=== PATIENT | male | born 1935 | race Caucasian/White ===

== ENCOUNTER → 2016-07-17 07:52 | Day surgery (SDC) | payer MEDICARE, OTHER ==
[~2016-07-17 07:52] MED LIST: Acetaminophen TAB* 325 MG PO PRN; Buffered Lidocaine 1% SYR 3ML* 3 ML/SYR SYRINGE INTRADERM ONE; Buffered Lidocaine 1% SYR 3ML* 3 ML/SYR SYRINGE ONE; Cyclopentolate 1% OPTH.SOL* 2 ML BTL ONE; Flurbiprofen 0.03% OPTH.SOL* 2.5 ML BTL ONE; Lidocaine 1% MPF* 2 ML VIAL ONE; Midazolam* 1 MG/ML 2 ML VIAL (2 MG) ONE; Neomycin/Polymy/Dex OPHTH.OIN* 3.5 GM ONE; Phenylephrine 2.5% OPTH.SOL* 2 ML BTL ONE; Tetracaine 0.5% OPTH.SOL 4 ML* 1 DROP BTL ONE; Tropicamide 1% OPTH.SOL* BTL ONE; fentaNYL* 50 MCG/ML 2 ML VIAL (100 MCG VIAL) ONE
[2016-07-17 09:43] VITALS: BP 108/69
--- NOTE | 2016-07-17 20:58 | OP ---
DATE OF OPERATION: 07/17/16 - [facility] DATE OF : 39 SURGEON: Dr. Myles. LICENSED VETERINARY TECHNICIAN: None. ANESTHESIOLOGIST: Bal Duran MD ANESTHESIA: Topical with intravenous sedation. PRE-OP DIAGNOSIS: Cataract, right eye with astigmatism. POST-OP DIAGNOSIS: Cataract, right eye with astigmatism. OPERATIVE PROCEDURE: Phacoemulsification and cataract extraction with posterior chamber toric intraocular lens implant, right eye. COMPLICATIONS: None. BLOOD LOSS: None. DESCRIPTION OF PROCEDURE: The patient was seen preoperatively in the holding area. He was placed in the upright position and a fabby was made at the 6 o' clock position near limbus on the conjunctiva of his right eye. The patient was then brought to the operating room and given a small amount of intravenous sedation as well as tetracaine to the right eye. He was prepped and draped in the usual sterile fashion for ophthalmic surgery. Attention was directed to the right eye where a speculum was placed. A paracentesis was created at the 11 o'clock position and 0.1 cc of 1% preservative-free lidocaine was injected into the anterior chamber followed by DisCoVisc. The eye was digitally stabilized while a 2.75 mm keratome was used to create a triplanar clear corneal incision at the 9 o'clock position. A continuous curvilinear capsulorrhexis was created with a cystotome and Utrata forceps. BSS on a cannula was used to hydrodissect the lens from the capsule. Phacoemulsification was performed in a mikgos-smm-ebeyfqi technique to create 4 fragments, which were removed. Residual cortical material was removed with irrigation and aspiration and the capsule was well polished. The capsular bag was inflated with Healon towards the anterior chamber. A Vila marker was used to fabby the 24 degree axis at the limbus. An [id number] 22 diopter lens was folded and inserted into the capsular bag. It was generally dialed to the appropriate actual alignment with a Sinskey hook. Through the paracentesis, the Sinskey hook remained to stabilize the lens while irrigation and aspiration was performed, removed all viscoelastic from the eye. The Sinskey hook was removed. BSS on a cannula was used to hydrate the corneal stroma and seal the wound. At the end of the case, the pupil was round. The lens was centered, stable, and axially aligned. The eye pressure appeared normal and the wound was water tight. The speculum was removed and topical Maxitrol ointment was placed on the surface of the eye. The eye was closed, patched, and shielded and the patient was sent to the recovery room in stable condition with postop instructions and followup appointment given. [id number] #: [id number] MTDD
== END | disposition home or self-care (01) ==
LOC: OREAST 07:52
PROVIDERS: ATTEND Ophthalmology
DX: H25.11 Age-related nuclear cataract, right eye (principal); H52.201 Unspecified astigmatism, right eye
CPT/HCPCS: A9270-GY; J2250; J3010; V2787

== ENCOUNTER → 2016-07-24 07:57 | Day surgery (SDC) | payer MEDICARE, OTHER ==
[2016-07-24 10:41] VITALS: BP 129/72
--- NOTE | 2016-07-24 13:01 | OP ---
DATE OF OPERATION: 07/24/16 - [facility] DATE OF : 39 SURGEON: Darryn Myles MD DRILLING CONTRACTOR: None. ANESTHESIOLOGIST: Nishant Mccauley MD ANESTHESIA: Topical intravenous sedation. PRE-OP DIAGNOSIS: Cataract with astigmatism, left eye. POST-OP DIAGNOSIS: Cataract with astigmatism, left eye. OPERATIVE PROCEDURE: Phacoemulsification cataract extraction with posterior chamber intraocular toric lens, left eye. COMPLICATIONS: None. ESTIMATED BLOOD LOSS: None. DESCRIPTION OF PROCEDURE: The patient was seen preoperatively in the holding area, where he was placed in an upright position and a fabby was made with the 6 o'clock axis of the limbus of the left eye. The patient was brought to the operating room soon thereafter and prepped and draped in the usual sterile fashion for ophthalmic surgery. A drop of tetracaine was placed in the left eye. The patient was given a small amount of intravenous sedation. The left eye was prepped and draped in the usual sterile fashion for ophthalmic surgery and attention was directed to the left eye, where a speculum was placed. A paracentesis was created at the 5 o'clock position and 0.1 cc of 1% preservative -free lidocaine was injected into the anterior chamber followed by DisCoVisc. The eye was digitally stabilized while a 2.75 mm keratome was used to create a triplanar clear corneal incisions at 3 o'clock position. A continuous curvilinear capsulorrhexis was created with a cystitome and Utrata forceps. BSS on a cannula was used to hydrodissect the lens in the capsule. Phacoemulsification was performed in a dlpczm-bni-syqrrek technique to created 4 fragments, which were removed. Residual cortical material was removed with irrigation and aspiration. Healon was used to inflate the capsular bag. A Vila marker and marking pen were used to fabby the 149 degree axis. An SN6AT3 22.5 diopter lens was folded and inserted into the capsular bag. It was dialed for the appropriate axis using a Sinskey hook and held there for the paracentesis. Irrigation aspiration was performed to remove viscoelastic from the eye. The Sinskey hook was removed. BSS on a cannula was used to hydrate the corneal stoma and seal the wound. At the end of the case, the pupil was round. The lens was centered, stable, and axially aligned. The eye pressure appeared normal and the wound is watertight. The speculum was removed and topical Maxitrol ointment was placed on the surface of the eye. The eye was closed, patched, and shielded and the patient was sent to recovery room in stable condition with postoperative instructions and followup appointment given. [id number] #: [id number] MTDD
== END | disposition home or self-care (01) ==
LOC: OREAST 07:57
PROVIDERS: ATTEND Ophthalmology
DX: H25.12 Age-related nuclear cataract, left eye (principal); Q21.1 Atrial septal defect
CPT/HCPCS: A9270-GY; J2250; J3010; V2787

== ENCOUNTER 2017-07-19 08:44 | Inpatient (IN) | payer MEDICARE, OTHER ==
[2017-07-19] MEDS ORDERED: Ticagrelor* 90 MG TAB PO ONE (08:59)
[2017-07-19] MEDS ORDERED: Heparin for STEMI(*) 5,000 UNITS/ML 1 ML VIAL IV ONE (08:59)
[2017-07-19] MEDS ORDERED: Aspirin Low Dose CHEW TAB* 81 MG ONE (09:00)
[2017-07-19] MEDS ORDERED: Heparin 2 UNITS/ML IVPREMIX* 3,000 ML IV ONE (09:16)
[2017-07-19] MEDS ORDERED: fentaNYL* 50 MCG/ML 2 ML VIAL (100 MCG VIAL) ONE (09:16)
[2017-07-19] MEDS ORDERED: Midazolam* 1 MG/ML 10 ML VIAL (10 MG) ONE (09:17)
[2017-07-19] MEDS ORDERED: Iohexol 350 (CONTRAST) 200 ML MDV IV ONE ×2 (09:17→09:35)
[2017-07-19] MEDS ORDERED: Lidocaine 1% INJ* 10 MG/ML 30 ML SDV ONE (09:17)
[2017-07-19] MEDS ORDERED: Heparin(*) 1000 UNIT/ML 10 ML VIAL CATH LAB IV ONE (09:19)
[2017-07-19] MEDS ORDERED: Bivalirudin(*) 250 MG VIAL ONE (09:19)
[2017-07-19 09:44] LABS: EGFR Non-African American 82.2 (>60)
[2017-07-19 09:52] LABS: Hematocrit 53 % (42-52); Hemoglobin 17.4 g/dl (14.0-18.0); Mean Corpuscular HGB Conc 33 g/dl (31-36); Mean Corpuscular Hemoglobin 29 pg (27-31); Mean Corpuscular Volume 88 fL (80-94); Red Blood Count 5.94 10^6/ul (4.0-5.4); Red Cell Distribution Width 13 % (10.5-15)
[2017-07-19 10:01] LABS: INR 0.87 (0.77-1.02)
[2017-07-19 10:20] LABS: ABS Basophils 0 10^3/ul (0-0.2); ABS Eosinophils 0.1 10^3/ul (0-0.6); ABS Lymphocytes 1.6 10^3/ul (1.0-4.8); ABS Monocytes 0.5 10^3/ul (0-0.8); ABS Neutrophils 8.2 10^3/ul (1.5-7.7); ABS Nucleated RBC 0 10^3/ul; Eosinophil % 0.8 % (0-6); Lymphocyte % 14.9 % (25-47); Mean Platelet Volume 9 um3 (7.4-10.4); Nucleated Red Blood Cells % 0.3; Platelet Count 197 10^3/ul (150-450); White Blood Count 10.4 10^3/ul (3.5-10.8)
[2017-07-19] MEDS ORDERED: Nitroglycerin TAB 0.4 MG* 0.4 MG TAB SL PRN (10:23)
[2017-07-19] MEDS ORDERED: Docusate CAP* 100 MG PO PRN (10:27)
[2017-07-19] MEDS ORDERED: Acetaminophen TAB* 325 MG PO PRN (10:27)
[2017-07-19] MEDS ORDERED: Ondansetron INJ* 2 MG/ML VIAL IV PRN (10:27)
[2017-07-19] MEDS ORDERED: fentaNYL* 50 MCG/ML 2 ML VIAL (100 MCG VIAL) IV PRN (10:27)
[2017-07-19] MEDS ORDERED: Zolpidem TAB* 5 MG PO PRN (10:27)
[2017-07-19] MEDS ORDERED: oxyCODONE/Acetamin 5/325 MG* TAB PO PRN (10:27)
[2017-07-19] MEDS ORDERED: NS 0.9% 1000 ML* 1,000 ML IV SCH (10:30)
[2017-07-19] MEDS ORDERED: Atorvastatin* 80 MG TAB PO ONE (10:35)
[2017-07-19] MEDS ORDERED: Metoprolol Tartrate TAB* 25 MG PO SCH (11:00)
--- NOTE | 2017-07-19 17:47 | ED ---
Zuhair Ennis Nilda, scribed for Jose Fry MD on 07/19/17 at 1200 . HPI Chest Pain - HPI Summary HPI Summary: This patient is an 82 year old M [facility] accompanied by with a chief complaint of constant CP (dull pressure) since 033. The patient rates the pain 1/10 and 2/10 max in severity. Symptoms aggravated and alleviated by nothing. Patient denies edema, diaphoresis, N/V, CP radiation to jaw and arm, and SOB. Pt states no PMHx CAD. Medications include baby aspirin and Vit D pill. PMHx cardiac foramen ovale. - History of Current Complaint Chief Complaint: EDChestPainROMI Time Seen by Provider: 07/19/17 08:59 Hx Obtained From: Patient Onset/Duration: Started Hours Ago, Still Present Timing: Constant Current Severity: Mild Pain Intensity: 1 Pain Scale Used: 0-10 Numeric Chest Pain Location: Diffuse Chest Pain Radiates: No Character: Dull/Aching, Pressure/Squeezing Aggravating Factor(s): Nothing Alleviating Factor(s): Nothing Associated Signs and Symptoms: Positive: Other: - denies edema, diaphoresis, N/V , CP radiation to jaw and arm, and SOB - Allergy/Home Medications Allergies/Adverse Reactions: Allergies Allergy/AdvReac Type Severity Reaction Status Date / Time No Known Allergies Allergy Verified 07/24/16 08:16 Home Medications: Home Medications Aspirin EC Low Dose* [Ecotrin EC Low Dose 81 MG*] 81 mg PO DAILY 07/19/17 [ History Confirmed 07/19/17] Cholecalciferol TAB* [Vitamin D TAB*] 1,000 unit PO DAILY 07/19/17 [History Confirmed 07/19/17] Miconazole Nitrate (Topical) [Miconazole] 2 % TOPICAL BID PRN 07/19/17 [History Confirmed 07/19/17] Urea [Ureacin-20] 20 % TOPICAL DAILY PRN 07/19/17 [History Confirmed 07/19/17] PMH/Surg Hx/FS Hx/Imm Hx Cardiovascular History: Reports: Other Cardiovascular Problems/Disorders - foramen ovale Denies: Hx Coronary Artery Disease, Hx Hypertension Sensory History: Reports: Hx Cataracts - BILATERAL, Hx Contacts or Glasses - GLASSES Denies: Hx Hearing Aid Opthamlomology History: Reports: Hx Cataracts - BILATERAL, Hx Contacts or Glasses - GLASSES - Surgical History Surgery Procedure, Year, and Place: TONSILLECTOMY A CHILD. RIGHT LARGE TOE SURGERY. ROOT CANAL ABOUT TEN YEARS AGO, OFFICE Hx Anesthesia Reactions: No Infectious Disease History: No Infectious Disease History: Denies: Traveled Outside the [place] in Last 30 Days - Family History Known Family History: Positive: Cardiac Disease - Social History Alcohol Use: Occasionally Substance Use Type: Reports: None Smoking Status (MU): Never Smoked Tobacco Review of Systems Negative: Skin Diaphoresis Positive: Chest Pain - negative radiation to jaw and arm Negative: Shortness Of Breath Negative: Vomiting, Nausea Negative: Edema All Other Systems Reviewed And Are Negative: Yes Physical Exam - Summary Physical Exam Summary: VITAL SIGNS: Reviewed. GENERAL: Patient is a well-developed and nourished male who is lying comfortable in the stretcher. Patient is not in any acute respiratory distress. HEAD AND FACE: No signs of trauma. No ecchymosis, hematomas or skull depressions. No sinus tenderness. EYES: PERRLA, EOMI x 2, No injected conjunctiva, no nystagmus. EARS: Hearing grossly intact. Ear canals and tympanic membranes are within normal limits. MOUTH: Oropharynx within normal limits. NECK: Supple, trachea is midline, no adenopathy, no JVD, no carotid bruit, no c- spine tenderness, neck with full ROM. CHEST: Symmetric, no tenderness at palpation LUNGS: Clear to auscultation bilaterally. No wheezing or crackles. CVS: Regular rate and rhythm, S1 and S2 present, no murmurs or gallops appreciated. ABDOMEN: Soft, non-tender. No signs of distention. No rebound no guarding, and no masses palpated. Bowel sounds are normal. EXTREMITIES: FROM in all major joints, no edema, no cyanosis or clubbing. NEURO: Alert and oriented x 3. No acute neurological deficits. Speech is normal and follows commands. SKIN: Dry and warm Triage Information Reviewed: Yes Vital Signs On Initial Exam: Initial Vitals Temp Pulse Resp BP Pulse Ox 98.4 F 75 18 149/87 100 07/19/17 08:45 07/19/17 08:45 07/19/17 08:45 07/19/17 08:45 07/19/17 08:45 Vital Signs Reviewed: Yes Diagnostics - Vital Signs Vital Signs Temp Pulse Resp BP Pulse Ox 07/19/17 09:16 82 20 100 07/19/17 09:14 175/84 07/19/17 08:45 98.4 F 75 18 149/87 100 - Laboratory Lab Results: Lab Results 07/19/17 07/19/17 07/19/17 Range/Units 09:13 09:13 09:13 WBC (3.5-10.8) 10^3/ul RBC (4.0-5.4) 10^6/ul Hgb (14.0-18.0) g/dl Hct (42-52) % MCV (80-94) fL MCH (27-31) pg MCHC (31-36) g/dl RDW (10.5-15) % Plt Count (150-450) 10^3/ul MPV (7.4-10.4) um3 Neut % (Auto) (38-83) % Lymph % (Auto) (25-47) % [place] % (Auto) (1-9) % Eos % (Auto) (0-6) % Baso % (Auto) (0-2) % Absolute Neuts (auto) (1.5-7.7) 10^3/ul Absolute Lymphs (auto) (1.0-4.8) 10^3/ul Absolute Monos (auto) (0-0.8) 10^3/ul Absolute Eos (auto) (0-0.6) 10^3/ul Absolute Basos (auto) (0-0.2) 10^3/ul Absolute Nucleated RBC 10^3/ul Nucleated RBC % INR (Anticoag Therapy) 0.87 (0.77-1.02) APTT 20.8 L (26.0-36.3) seconds Sodium 137 (133-145) mmol/L Potassium 3.8 (3.5-5.0) mmol/L Chloride 100 L (101-111) mmol/L Carbon Dioxide 28 (22-32) mmol/L Anion Gap 9 (2-11) mmol/L BUN 15 (6-24) mg/dL Creatinine 0.89 (0.67-1.17) mg/dL Est GFR ( Amer) 105.8 (>60) Est GFR (Non-Af Amer) 82.2 (>60) BUN/Creatinine Ratio 16.9 (8-20) Glucose 104 H (70-100) mg/dL Lactic Acid (0.5-2.0) mmol/L Calcium 9.7 (8.6-10.3) mg/dL Total Bilirubin 0.70 (0.2-1.0) mg/dL AST 25 (13-39) U/L ALT 22 (7-52) U/L Alkaline Phosphatase 59 (34-104) U/L Total Creatine Kinase 77 (10-223) U/L CK-MB (CK-2) 7.4 H (0.6-6.3) ng/mL Troponin I 0.09 H* (<0.04) ng/mL B-Natriuretic Peptide 26 ( - 100) pg/mL Total Protein 7.5 (6.4-8.9) g/dL Albumin 4.7 (3.2-5.2) g/dL Globulin 2.8 (2-4) g/dL Albumin/Globulin Ratio 1.7 (1-3) LDL Cholesterol Direct 156 mg/dL 07/19/17 07/19/17 Range/Units 09:13 09:13 WBC 10.4 (3.5-10.8) 10^3/ul RBC 5.94 H (4.0-5.4) 10^6/ul Hgb 17.4 (14.0-18.0) g/dl Hct 53 H (42-52) % MCV 88 (80-94) fL MCH 29 (27-31) pg MCHC 33 (31-36) g/dl RDW 13 (10.5-15) % Plt Count 197 (150-450) 10^3/ul MPV 9 (7.4-10.4) um3 Neut % (Auto) 79.1 (38-83) % Lymph % (Auto) 14.9 L (25-47) % [place] % (Auto) 4.7 (1-9) % Eos % (Auto) 0.8 (0-6) % Baso % (Auto) 0.5 (0-2) % Absolute Neuts (auto) 8.2 H (1.5-7.7) 10^3/ul Absolute Lymphs (auto) 1.6 (1.0-4.8) 10^3/ul Absolute Monos (auto) 0.5 (0-0.8) 10^3/ul Absolute Eos (auto) 0.1 (0-0.6) 10^3/ul Absolute Basos (auto) 0 (0-0.2) 10^3/ul Absolute Nucleated RBC 0 10^3/ul Nucleated RBC % 0.3 INR (Anticoag Therapy) (0.77-1.02) APTT (26.0-36.3) seconds Sodium (133-145) mmol/L Potassium (3.5-5.0) mmol/L Chloride (101-111) mmol/L Carbon Dioxide (22-32) mmol/L Anion Gap (2-11) mmol/L BUN (6-24) mg/dL Creatinine (0.67-1.17) mg/dL Est GFR ( Amer) (>60) Est GFR (Non-Af Amer) (>60) BUN/Creatinine Ratio (8-20) Glucose (70-100) mg/dL Lactic Acid 1.9 (0.5-2.0) mmol/L Calcium (8.6-10.3) mg/dL Total Bilirubin (0.2-1.0) mg/dL AST (13-39) U/L ALT (7-52) U/L Alkaline Phosphatase (34-104) U/L Total Creatine Kinase (10-223) U/L CK-MB (CK-2) (0.6-6.3) ng/mL Troponin I (<0.04) ng/mL B-Natriuretic Peptide ( - 100) pg/mL Total Protein (6.4-8.9) g/dL Albumin (3.2-5.2) g/dL Globulin (2-4) g/dL Albumin/Globulin Ratio (1-3) LDL Cholesterol Direct mg/dL Result Diagrams: 07/19/17 09:13 07/19/17 09:13 Lab Statement: Any lab studies that have been ordered have been reviewed, and results considered in the medical decision making process. - EKG 0847 Cardiac Rate: NL EKG Rhythm: Sinus Rhythm - 72 bpm EKG Interpretation: ST depression in V2-V6 and lead 2, consistent with posterior wall TN 0902 Cardiac Rate: NL EKG Rhythm: Sinus Rhythm - 83 bpm EKG Interpretation: ST depression in V2-V6 and lead 2, consistent with posterior wall TN. Chest Pain Course/Dx - Course Assessment/Plan: This patient is an 82 year old M presenting to [facility] accompanied by with a chief complaint of constant CP (dull pressure) since 329. The patient rates the pain 1/10 and 2/10 max in severity. Symptoms aggravated and alleviated by nothing. Patient denies edema, diaphoresis, N/V, CP radiation to jaw and arm, and SOB. Pt states no PMHx CAD. Medications include baby aspirin and Vit D pill. PMHx cardiac foramen ovale. Trop 0.09. An EKG reveals NSR, 72 bpm, ST depression in V2-V6 and lead 2, consistent with posterior wall TN. A second EKG revealed NSR, 83 bpm, ST depression in V2-V6 and lead 2, consistent with posterior wall TN. Labs w/o a significant abnormality except for troponin 0.09. [0900] Dr. Mike (interventionalist) agrees to see pt in ED. [0905] Dr. Mike (interventionalist) agrees to admit patient to the cath lab radiological technologist. The pt is hemodynamically stable, alert and oriented x3. Pt will be admitted with Dx acute TN.. - Chest Pain Differential Diagnosis/HQI/PQRI: Acute TN, ACS, Angina, CHF, Chest Wall, GI Disease, Lower Respiratory Infection - Diagnoses Provider Diagnoses: Acute TN - Provider Notifications Discussed Care Of Patient With: Zaid Mike - interventionalist Time Discussed With Above Provider: 09:00 Instructed by Provider To: Will See In ED - Critical Care Time Critical Care Time: 75-104 min Discharge - Discharge Plan Condition: Stable Disposition: ADMITTED TO [facility] documentation as recorded by the Zuhair lovell Nilda accurately reflects the service I personally performed and the decisions made by Ang lazcano Walter, MD.
[2017-07-19] MEDS ORDERED: Metoprolol Tartrate TAB* 25 MG PO ONE ×2 (18:30→22:30)
--- NOTE | 2017-07-19 19:03 | ECHO ---
Patient: ODALYS YOUSIF [facility] Rec#: [id number] : 1935 Date: 07/19/2017 Age: 82y Height: 177.8 cm / 70.0 in Weight: 81.7 kg / 180.1 lbs Sex: M BSA: 2 Room#: ICU 1 Admit Date#: 07/19/2017 Type: Inpatient Referring: Zaid Mike MD Reading: Zaid Mike MD Pin Inserter: Rosie Nolan RN RDCS CC: John Paul Siegel MD Transthoracic Echocardiogram Indication: S/P PCI for posterior FL BP: 149/87 HR: 63 Rhythm: NSR with PVCs Findings History: TIA, PFO Technical Comments: The study quality is fair. Completed at 1815. Left Ventricle: The left ventricular chamber size is normal. Septal wall hypertrophy is observed. There is a focal wall motion abnormality present.There is moderste to severe hypokinesis of the low posterolateral wall extending to the apical area There is mild to moderately decreased left ventricular systolic function. Visually estimated LVEF is approximately 45 % There is an E to A reversal in the mitral valve flow pattern suggestive of diastolic dysfunction. Left Atrium: The left atrial chamber size is normal. Right Ventricle: The right ventricular chamber size and systolic function are within normal limits. Right Atrium: The right atrial cavity size is normal. The bubble study is negative. Delayed appearance of saline contrast bubbles is noted in the left atrium indicating intrapulmonary shunting. Aortic Valve: The aortic valve leaflets are mildly thickened. There is no evidence of aortic regurgitation. There is no evidence of aortic stenosis. Mitral Valve: The mitral valve leaflets are mildly thickened. There is a trace of mitral regurgitation. There is no evidence of mitral stenosis. Tricuspid Valve: The tricuspid valve leaflets are normal. There is trace tricuspid regurgitation. Unable to estimate the right ventricular systolic pressure. Pulmonic Valve: The pulmonic valve structure is not well visualized. There is a trace pulmonic regurgitation. There is no pulmonic stenosis. Pericardium: There is no significant pericardial effusion. A pericardial fat pad is visualized. Aorta: There is mild dilatation of the ascending aorta. There is no dilatation of the aortic arch. There is no dilation of the aortic root. Pulmonary Artery: The main pulmonary artery is not well visualized. Venous: The inferior vena cava is not visualized. Contrast: Normal saline was used as contrast for the bubble study. Images 1 and 2. Conclusions There is a focal wall motion abnormality present.There is moderste to severe hypokinesis of the low posterolateral wall extending to the apical area There is mild to moderately decreased left ventricular systolic function. Visually estimated LVEF is approximately 45 % The bubble study is negative. Delayed appearance of saline contrast bubbles is noted in the left atrium indicating intrapulmonary shunting. There is a trace of mitral regurgitation. There is trace tricuspid regurgitation. There is mild dilatation of the ascending aorta. Compared to report of MYRNA from 05/14/06 the focal wall motion abnormality is new, there appears to be less mitral and tricuspid regurgitation (was mild to moderate and mild respectively). The current bubble study does not show right to left shunting at the atrial level, although the quality of the images are not as good as a transesophageal study. Suggest a MYRNA at some point if a more definitive answer is needed. Measurements Name Value Normal Range RVDdMajor (2D) 3.1 cm (2.2 - 4.4) RAd ISD 4CH 4.8 cm (3.4 - 4.9) RA (A4C)W 4 cm (2.9 - 4.6) IVSd (2D) 1.1 cm (0.6 - 1) LVPWd (2D) 1 cm (0.6 - 1) LVIDd (2D) 4.6 cm (3.6 - 5.4) LVIDs (2D) 3.6 cm - LV FS (2D) 22 % (25 - 45) Aortic Annulus 2 cm (1.4 - 2.6) Ao root diameter (2D) 3.1 cm (2.1 - 3.5) Ascending Ao 3.6 cm (2.1 - 3.4) Aortic arch 2.8 cm (1.8 - 3.4) LA dimension (AP) 2D 3.7 cm (2.3 - 3.8) LAd ISD 4CH 4.7 cm (2.9 - 5.3) LA ISD 4CH W 3.9 cm (2.5 - 4.5) Name Value Normal Range LA ESV SP 4CH (A/L) 41 ml - LA ESV SP 2CH (A/L) 43 ml - LA ESV BP (A/L) 43 ml - LA ESV BP (A/L) index 21.5 ml/m2 - LA ESV SP 4CH (MOD) 38 ml - LA ESV SP 2CH (MOD) 42 ml - Name Value Normal Range MV E-wave Vmax 0.6 m/sec - MV deceleration time 263 msec - MV A-wave Vmax 0.8 m/sec - MV E:A ratio 0.75 ratio - LV septal e' Vmax 0.07 m/sec - LV lateral e' Vmax 0.07 m/sec - LV E:e' septal ratio 8.6 ratio - LV E:e' lateral ratio 8.6 ratio - Name Value Normal Range AV Vmax 1 m/sec - AV VTI 18.6 cm - AV peak gradient 4 mmHg - AV mean gradient 2.4 mmHg - LVOT Vmax 0.93 m/sec - LVOT VTI 18.4 cm - LVOT peak gradient 3.5 mmHg - LVOT mean gradient 1.9 mmHg - PEDRO Vmax 0.54 m/sec - Name Value Normal Range PV Vmax 0.77 m/sec -
[2017-07-19] MEDS: Ticagrelor* 90 MG TAB PO SCH (20:45)
[2017-07-19] MEDS: Atorvastatin* 80 MG TAB PO SCH (20:45)
--- NOTE | 2017-07-19 20:47 | HP ---
CC: Dr. John Paul Siegel * ADMISSION HISTORY AND PHYSICAL: DATE OF ADMISSION: 07/19/17 CHIEF COMPLAINT: The patient presents 6 hours into an acute posterior wall myocardial infarction. HISTORY OF PRESENT ILLNESS: The patient is a pleasant 82-year-old gentleman with no prior known cardiac history. Specifically, he denies any prior history of coronary artery disease. His cardiac history dates back to a reported echocardiogram done back in 2005 for a workup of TIA when he was noted to have a patent foramen ovale with spontaneous shunting of contrast by agitated injection. He had normal LV function at that time. More recently, he had a repeat echocardiogram done for evaluation for question of an asymptomatic heart murmur and to recheck on the question of the patent foramen ovale and mitral regurgitation that was performed on 08/24/10. His LV function at that time was normal with an EF of 60% to 65%. He had lipomatous hypertrophy of the atrial septum. The right ventricle and right atrium were normal in size. The left atrium was mildly dilated. There was mild mitral regurgitation with mild tricuspid regurgitation. The aortic root, the ascending aorta, and aortic arch were normal. 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 There was no significant radiation to the throat, jaw, or the arms. He had no nauseousness or vomiting. He stated that in the emergency room, it had decreased significantly from when it was at home, but at no point with its severe in nature. EKG was performed and it showed profound ST segment depression anteriorly suggesting posterior wall infarction with poor R-wave already greater than S and V2 as well as V3. There was mild ST segment depression seen in aVF slightly more in lead 2. A discussion was made with him regarding the presence of the EKG still demonstrating persistent ST segment changes which would be consistent with posterior elevation. The risks and benefits of cardiac catheterization were explained. He understood them and wished to proceed. In the emergency room, he was given heparin intravenously 4000 units in addition to getting Brilinta 180 mg as well as aspirin 325 mg. Of note, the blood tests were pending at the time of proceeding directly to the cardiovascular laboratory. CARDIAC RISK FACTORS: The patient denied any known history of hypertension or hyperlipidemia. He has the history as mentioned of patent foramen ovale, on aspirin therapy. He has impaired fasting glycemia according to his family doctor. He does not smoke and he denies any family history of early coronary artery disease. PAST MEDICAL HISTORY: The patent foramen ovale in addition to impaired fasting glycemia and intermittent constipation. PAST SURGICAL HISTORY: Included cataracts bilaterally. He also had tonsillectomy as a child, right toe surgery and root canal about 10 years ago. REVIEW OF SYSTEMS: Pertinent to proceeding emergently to the cardiovascular laboratory. He denied any history of stroke, but did mention a question of this TIA back in 2005, for which they found the patent foramen ovale. He denied any history of renal insufficiency, any history of hematochezia, hematemesis, or hematuria or any contrast allergy. PHYSICAL EXAMINATION GENERAL: When I see him in the emergency room reveals pleasant gentleman with mild chest discomfort, still present. VITAL SIGNS: Revealed blood pressure of 149/87, pulse was 75 and regular, respirations were 18, O2 saturation 100% on room air, afebrile. HEENT: Conjunctivae were pink. Sclerae clear. NECK: Supple. There was no obvious increased JVP. Carotid had good upstroke and volume without bruits. LUNGS: Revealed no accessory muscle usage. There is good excursion. Lungs are relatively clear to A and P. HEART: Revealed no visible heaves, no palpable heaves or thrills. Normal S1, S2. I did not appreciate a significant systolic or diastolic murmur. I cannot rule out a faint systolic murmur at the left lower sternal border. ABDOMEN: Soft, nontender. EXTREMITIES: Without edema. NEUROLOGIC: The patient is alert and oriented with normal mentation. MUSCULOSKELETAL: The patient moves all extremities appropriately. PSYCHOLOGICAL: The patient with normal affect. DIAGNOSTIC STUDIES/LAB DATA: EKG was as mentioned above showing sinus rhythm with a heart rate of 72. IL, QRS and QT interval all normal. There was significant ST segment depression in V2 through V5 and mildly in V6 as well as mildly in aVF and more prominent lead 2. 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 OVERALL ASSESSMENT: Trell now presents in the throes of an acute posterior wall STEMI , already 6 hours at least into it. At this point in time, the risks and benefits were explained and with persistent posterior elevation noted fairly diffusely, consideration toward revascularization will be made. He understands the risks and benefits and wishes to proceed and has been medicated appropriately for the procedure. Further therapy will be adjusted pending results of the catheterization. [id number]/[facility] #: [id number] [facility]
[2017-07-20 05:10] LABS: ABS Basophils 0 10^3/ul (0-0.2); ABS Eosinophils 0.1 10^3/ul (0-0.6); ABS Lymphocytes 1.3 10^3/ul (1.0-4.8); ABS Monocytes 0.9 10^3/ul (0-0.8); ABS Neutrophils 6.6 10^3/ul (1.5-7.7); ABS Nucleated RBC 0 10^3/ul; Eosinophil % 1.2 % (0-6); Hematocrit 44 % (42-52); Hemoglobin 14.8 g/dl (14.0-18.0); Lymphocyte % 14.5 % (25-47); Mean Corpuscular HGB Conc 34 g/dl (31-36); Mean Corpuscular Hemoglobin 30 pg (27-31); Mean Corpuscular Volume 88 fL (80-94); Mean Platelet Volume 9 um3 (7.4-10.4); Nucleated Red Blood Cells % 0; Platelet Count 172 10^3/ul (150-450); Red Blood Count 4.98 10^6/ul (4.0-5.4); Red Cell Distribution Width 13 % (10.5-15); White Blood Count 8.8 10^3/ul (3.5-10.8)
[2017-07-20 05:25] LABS: EGFR Non-African American 90.4 (>60)
[2017-07-20] MEDS: Aspirin Low Dose CHEW TAB* 81 MG PO SCH (09:38)
[2017-07-20] MEDS: Ticagrelor* 90 MG TAB PO SCH ×2 (09:38→20:20)
[2017-07-20] MEDS: Metoprolol Tartrate TAB* 25 MG PO SCH ×2 (09:38→20:19)
[2017-07-20] MEDS: Atorvastatin* 80 MG TAB PO SCH (20:20)
[2017-07-21 06:45] LABS: EGFR Non-African American 91.7 (>60)
[2017-07-21] MEDS: Aspirin Low Dose CHEW TAB* 81 MG PO SCH (08:53)
[2017-07-21] MEDS: Ticagrelor* 90 MG TAB PO SCH ×2 (08:54→21:28)
[2017-07-21] MEDS: Metoprolol Tartrate TAB* 25 MG PO SCH ×2 (08:54→21:27)
--- NOTE | 2017-07-21 09:32 | CATH ---
CC: Dr. John Paul Siegel * CARDIAC CATHETERIZATION AND INTERVENTIONAL REPORT: DATE OF PROCEDURE: 07/19/17 INDICATION FOR THE PROCEDURE: Patient presents with a posterior wall myocardial infarction over 6 hours into it by history. PROCEDURES: Coronary arteriography, left heart catheterization, left ventriculography, primary stenting of the mid to distal circumflex artery utilizing a 2.25 x 20 mm long Synergy drug-eluting stent dilated to high pressures to obtain 2.4 mm diameter, a Mynx closure device placement for hemostasis. The patient was interviewed and examined in the emergency room where the risks and benefits were explained. He understood them. He was brought to the cardiovascular laboratory where formal time-out was performed. The patient was prepped and draped in a sterile fashion. Right groin area was anesthetized with 1% lidocaine. Right femoral artery was cannulated and a 6.5-British Merit Prelude sheath was placed. Coronary arteriography was performed utilizing a 5- British 4 Yarely left coronary catheter for the left coronary artery and a 5- British right coronary artery. For the right coronary artery, a 5-British pigtail catheter was advanced to the ascending aorta, where central aortic pressure was recorded. The catheter was then passed across the aortic into the left ventricle where the left ventricular pressure was recorded. Left ventriculography was performed utilizing a total of 24 cc of Omnipaque dye at a rate of 12 cc per second. The catheter was then pulled back across the aortic valve to recheck gradient. Following this, decision was made to intervene into the circumflex artery. Guiding views were performed utilizing VL 3.5, 6-British guide catheter. An 0.014 [place] Star wire was advanced down the circumflex artery and primary stenting was performed utilizing the 2.25 x 28 mm long balloon expanded to high pressures to obtain 2.4 mm. Following this, the artery was assessed both with the wire in place and the wire removed. Of note, the patient's ECT was checked and found to be subtherapeutic and as such an Angiomax bolus and Angiomax drip was started. The patient had already received aspirin 325 mg and Brilinta 180 mg in the emergency room as well as heparin 4000 unit bolus. Following this, an ejection was made into the right femoral sheath to assess the ability to utilize a closure device for hemostasis. It was found to be acceptable for this and as such a size 6/7- British Mynx closure device was deployed with good hemostasis. The total contrast used was 140 cc of Omnipaque dye. The radiation exposure included 10.1 minutes of fluoro time. The air kerma radiation was 840 milligray , the DAPA radiation was 4842 microgray/m2. RESULTS: HEMODYNAMIC DATA: Left heart catheterization - central aortic pressure recorded at 135/61 with mean of 92, left ventricular pressure 134 over left ventricular end diastolic pressure of 19. LEFT VENTRICULOGRAPHY: Performed in the HUNT projection revealed symmetrical contraction of left ventricle with mild distal inferior apical hypokinesis. Overall EF appeared to be approximately 50% in this HUNT projection. No significant mitral regurgitation was seen. CORONARY ARTERIOGRAPHY: A. Right coronary artery - a dominant vessel supplying the PDA and three posterior left ventricular branches. There was a mild 15% to 20% narrowing seen the proximal portion of the right coronary artery. The mid to distal area had a narrowing of 40% to 45% prior to the posterior descending artery. The ostium of the posterior descending artery appeared to have a 75% blockage in its worst view. The mid portion of the posterior descending artery had a 55% to 60% narrowing in a somewhat small caliber vessel that appeared to be less than 2 mm. B. Left coronary artery. 1. Left main - widely patent with no significant narrowing seen. 2. Left anterior descending artery - the proximal portion of the left anterior descending artery was noted to have an area of stenosis that appeared to be 60% to 65% in its worst view. After the first diagonal branch, there was an area of narrowing, which appeared to be 50% to 60%. The mid to distal portion of the LAD had a 75% to 80% lesion noted. LAUREN 3 flow was seen throughout the course of the left anterior descending artery. 3. Circumflex artery - a nondominant vessel supplying a very thin first obtuse marginal branch. This was a vessel caliber of well less than 1.7 mm. There was a ostial and proximal narrowing of 50% to 55%. Of note, this is not a vessel that could be intervened on. The continuation of the circumflex supplied a moderate size obtuse marginal branch, which trifurcated toward the apical and distal inferior wall. There was a hazy 65% to 70% lesion followed by a critical 95% lesion in the mid to distal portion before the trifurcation area. INTERVENTION INTO MID TO DISTAL CIRCUMFLEX ARTERY SECOND OBTUSE MARGINAL BRANCH : Successful reduction of critical 95% mid area more proximal 65% to 70% hazy area with primary stenting utilizing a 2.25 x 28 mm long Synergy drug-eluting stent dilated to high pressure to obtain 2.4 mm with LAUREN 3 flow, no dissection seen, and 10% residual narrowing noted. Of note, the caliber of this stent appeared to be larger than the [place] vessel itself. No dissection was seen. OVERALL ASSESSMENT: Significant multi-vessel disease as described above involving the PDA ostial proximal area as well as the proximal LAD, mid LAD, and distal LAD with the culprit lesion being the mid portion of the moderate to large trifurcating second obtuse marginal branch noted to have LAUREN 2 flow preintervention. Successful intervention with primary stenting as described above. Aggressive risk factor management with high dose statin therapy, dual antiplatelet therapy , beta- chuckie therapy will be presumed. Staged intervention into the LAD pending evaluation with probable fractional flow reserve analysis will be performed. [id number]/[facility] #: [id number] MTDD
[2017-07-21] MEDS: Atorvastatin* 80 MG TAB PO SCH (21:28)
--- NOTE | 2017-07-22 01:35 | DS ---
CC: John Paul Siegel MD * PREDISCHARGE SUMMARY: DATE OF ADMISSION: 07/19/17 DATE OF DISCHARGE: Will be 07/22/17. FINAL DIAGNOSIS: Acute posterior wall myocardial infarction with 6-1/2-hour presentation. SECONDARY DIAGNOSES: 1. Hyperlipidemia. 2. Coronary artery disease. 3. History of patent foramen ovale. 4. Impaired fasting glycemia. 5. Intermittent constipation. HISTORY OF PRESENT ILLNESS: The patient is a pleasant 82-year-old gentleman who presented to [facility] on 07/19/17 in the throes of an acute posture with myocardial infarction. Unfortunately, by the time of presentation , he was already some 6 to 6-1/2 hours into his inferior wall myocardial infarction. Please refer to the H and P for complete details. He was taken emergently to the cardiovascular laboratory and found to have multivessel disease with the culprit lesion being a subtotally occluded large second obtuse marginal branch traversing to the inferior apical lateral wall. He underwent successful primary stenting of this vessel utilizing a 2.25 x 28 mm long Synergy drug-eluting stent dilated to as high as 2.4 to 2.5 mm. Of note , at the time of the catheterization, he was noted to have disease within the left anterior descending artery with an area of stenosis proximally of approximately 60% to 65% followed by a 50% to 60% area just after the first diagonal branch. The distal area had a 75% to 80% lesion seen. The right coronary artery was a dominant vessel with mild disease proximally, a mid 40% to 45% blockage was noted. The ostium and the posterior descending artery appeared in its worst view to have as much as a 70% to 75% blockage. The mid portion of the PDA itself had a 55% to 60% narrowing noted. HOSPITAL COURSE: During the hospital course, his troponin peaked at 17.48. His EKG developed T-wave inversions in 1, 2, aVL, and subtly in lead aVF, and T- wave inversions were noted in V4 through 6. Of note, he had early R-wave progression in his precordial leads that interestingly was already present back on EKGs before his heart attack, but perhaps slightly worse suggesting the posterior infarction. An echocardiogram was performed during the hospitalization early on and he was noted to have a focal wall motion abnormality with moderate to severe hypokineses of the low posterolateral wall extending to the lateral apical region. EF was estimated at approximately 45%. A bubble study was done which was of poor quality which did not suggest significant right to left shunting. Color flow Doppler was difficult at best to look for left to right shunting given the quality of the study. (He was known back in 2005 on MYRNA to have a patent foramen ovale). MEDICATIONS AT THE TIME OF DISCHARGE: 1. Aspirin 81 mg a day. 2. Ticagrelor (Brilinta) 90 mg twice a day. 3. Atorvastatin 80 mg once a day. 4. Metoprolol tartrate 25 mg twice a day. 5. Cholecalciferol, miconazole cream, and urea cream as at home. The patient will follow up with me within 7 to 10 days for consideration of timing to electively evaluate the left anterior descending artery lesions and possibly the right coronary artery lesions. The patient was given an education booklet and a stent card as well . [id number]/[facility] #: [id number] MTDD
[2017-07-22 05:56] LABS: EGFR Non-African American 83.3 (>60)
[2017-07-22] MEDS: Metoprolol Tartrate TAB* 25 MG PO SCH (08:02)
[2017-07-22] MEDS: Ticagrelor* 90 MG TAB PO SCH (08:02)
[2017-07-22] MEDS: Aspirin Low Dose CHEW TAB* 81 MG PO SCH (08:02)
[2017-07-22 08:15] VITALS: BP 127/64
== END 2017-07-22 11:35 | disposition home or self-care (01) | DRG 247 ==
LOC: ED 08:44 → CHICATH 09:22 → ICU 10:23 → MEDTELE 07-21 14:33
PROVIDERS: ADMIT Internal Medicine Cardiovascular Disease; ATTEND Internal Medicine Cardiovascular Disease
PROC: B2111ZZ Fluoroscopy of Multiple Coronary Arteries using Low Osmolar Contrast (ICD-10-PCS; 2017-07-19)
PROC: B2151ZZ Fluoroscopy of Left Heart using Low Osmolar Contrast (ICD-10-PCS; 2017-07-19)
PROC: 4A023N7 Measurement of Cardiac Sampling and Pressure, Left Heart, Percutaneous Approach (ICD-10-PCS; 2017-07-19)
PROC: 027034Z Dilation of Coronary Artery, One Artery with Drug-eluting Intraluminal Device, Percutaneous Approach (ICD-10-PCS; principal; 2017-07-19 09:15)
DX: I21.29 ST elevation (STEMI) myocardial infarction involving other sites (principal); I08.1 Rheumatic disorders of both mitral and tricuspid valves; I25.10 Atherosclerotic heart disease of native coronary artery without angina pectoris; E78.5 Hyperlipidemia, unspecified; K59.00 Constipation, unspecified; R73.01 Impaired fasting glucose; Z98.49 Cataract extraction status, unspecified eye; Z86.73 Personal history of transient ischemic attack (TIA), and cerebral infarction without residual deficits; Q21.1 Atrial septal defect; Z98.42 Cataract extraction status, left eye; Z98.41 Cataract extraction status, right eye; Z82.49 Family history of ischemic heart disease and other diseases of the circulatory system; Z72.89 Other problems related to lifestyle; Z79.82 Long term (current) use of aspirin; Z79.02 Long term (current) use of antithrombotics/antiplatelets
CPT/HCPCS: 36415; 80048; 80053; 80061; 82550; 82553; 83605; 83721; 83735; 83880; 84484; 85025; 85610; 85730; 87641; 93005; 93306; 99285; A9270-GY; C1760; C1769; C1876; C1887; C9606-LC; J0583; J1644; J2250; J3010

== ENCOUNTER 2017-07-28 07:13 | Inpatient (IN) | payer MEDICARE, OTHER ==
[2017-07-28 07:47] LABS: ABS Basophils 0 10^3/ul (0-0.2); ABS Eosinophils 0.1 10^3/ul (0-0.6); ABS Lymphocytes 1.1 10^3/ul (1.0-4.8); ABS Monocytes 0.9 10^3/ul (0-0.8); ABS Neutrophils 3.4 10^3/ul (1.5-7.7); ABS Nucleated RBC 0 10^3/ul; Eosinophil % 1.2 % (0-6); Hematocrit 43 % (42-52); Hemoglobin 14.8 g/dl (14.0-18.0); Lymphocyte % 19.6 % (25-47); Mean Corpuscular HGB Conc 34 g/dl (31-36); Mean Corpuscular Hemoglobin 30 pg (27-31); Mean Corpuscular Volume 88 fL (80-94); Mean Platelet Volume 9 um3 (7.4-10.4); Nucleated Red Blood Cells % 0.1; Platelet Count 194 10^3/ul (150-450); Red Blood Count 4.91 10^6/ul (4.0-5.4); Red Cell Distribution Width 13 % (10.5-15); White Blood Count 5.5 10^3/ul (3.5-10.8)
[2017-07-28 08:01] LABS: INR 1.02 (0.77-1.02)
[2017-07-28 08:02] LABS: EGFR Non-African American 76.3 (>60)
--- NOTE | 2017-07-28 08:37 | RAD ---
Indication: RIGHT anterolateral chest wall pain worse on deep inspiration. Comparison: July 28, 2017 Technique: 4 view RIGHT unilateral rib series. Report: Inferolateral skin marker noted indicating the site of clinical concern. No RIGHT rib fracture, pleural effusion, or pneumothorax evident. Clear RIGHT lung. Unremarkable soft tissue contours. IMPRESSION: No RIGHT rib fracture evident. Negative for pneumothorax.
--- NOTE | 2017-07-28 08:47 | RAD ---
Indication: Diaphoresis. Syncope. Hit RIGHT occipital region. Comparison: May 04, 2006 Technique: Noncontrast CT vertex of skull through foramen magnum. Report: The sulci, ventricles, and basal cisterns are normal for age. Dhaliwal matter white matter differentiation is preserved without evidence for edema. No intra or extra axial hemorrhage is detected. Unremarkable visualized orbital contents. Negative for calvarial or skull base fracture. Negative for scalp hematoma. The visualized paranasal sinuses and mastoid air spaces are clear. IMPRESSION: No evidence for traumatic brain injury or acute intracranial process. Negative exam for age.
--- NOTE | 2017-07-28 08:49 | RAD ---
Indication: Diaphoresis. Headache. Recent stent placement. Comparison: RIGHT rib series of the same date. Technique: Upright AP 0745 hours Report: Clear lungs and pleural spaces. Negative for pneumothorax. The heart, pulmonary vasculature, and mediastinal contours are unremarkable accounting for rightward rotation. Unremarkable osseous structures and soft tissue contours. IMPRESSION: No evidence for acute intrathoracic disease.
[2017-07-28] MEDS ORDERED: Ondansetron INJ* 2 MG/ML VIAL IV PRN (10:46)
[2017-07-28] MEDS ORDERED: Nitroglycerin TAB 0.4 MG* 0.4 MG TAB SL PRN (10:48)
[2017-07-28] MEDS: Oseltamivir CAP* 75 MG CAP PO ONE ×2 (13:39→16:16)
[2017-07-28] MEDS: Heparin VIAL(*) 5000 UNITS/ML VIAL (FIVE THOUSAND) SUBCUT SCH ×3 (13:39→21:07)
[2017-07-28 14:21] LABS: Urine Appearance Cloudy; Urine Blood Negative (Negative); Urine Color Yellow; Urine Ketones Negative (Negative); Urine Protein Negative (Negative); Urine Specific Gravity 1.018 (1.010-1.030); Urine Urobilinogen Negative (Negative)
[2017-07-28] MEDS ORDERED: Polyethylene Glycol 3350* 17 GM PACKET PO PRN (14:38)
[2017-07-28] MEDS: Acetaminophen TAB* 325 MG PO PRN ×2 (16:16→22:11)
--- NOTE | 2017-07-28 18:58 | HP ---
CC: Dr. Siegel; Dr. Mike * ADMISSION HISTORY AND PHYSICAL: DATE OF ADMISSION: 07/28/17 PRIMARY CARE PROVIDER: Dr. Siegel. PRE SALES ARCHITECT: Dr. Mike. HEALTHCARE PROXY: His . CODE STATUS: Full. SOURCE OF INFORMATION: History obtained from interview with patient, review of past medical records including Dr. Mike's most recent outpatient note and mobile [facility]. RELIABILITY: Good. CHIEF COMPLAINT: Syncope or loss of consciousness. HISTORY OF PRESENT ILLNESS: This is an 82-year-old man who was admitted to [facility] on 07/19/17, 6-1/2 hours post a posterior wall STEMI, received a percutaneous intervention via his right groin with a drug-eluting stent placed and a subtotally occluded large second obtuse marginal branch that was noted to be traversing to the inferior apical lateral wall. His EF during that hospital stay was noted to be 40% to 45% with focal wall motion abnormality with moderate -to-severe hypokinesis of the low posterior lateral wall extending to the lateral apical region. Since the time of discharge, he had had no chest pain, shortness of breath, or lightheadedness. He did note several days prior he started developing rhinorrhea and a productive cough without associated sore throat or fevers. He has had no sick contacts other than what he suspects occurred in the hospital setting. The day prior to presentation he woke up, felt well, and wanted to fill his bird feeder. On the way down, there was noted to be snow on the steps. He shoveled half of the stairs including which were approximately 5 small steps and then had sudden loss of consciousness, which he did not remember, woke on the floor. No preceding symptoms. Again, no chest pain, shortness of breath, lightheadedness, nausea, vomiting. He had pain that developed in his right lower chest wall worse with coughing approximately 12 hours after his fall. 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 The day of admission, he woke up in the morning around 5 a.m., noted diaphoresis on his chest and his back described as the torso and he had noted that diaphoresis had been presenting symptom with his posterior STEMI last time and so activated the EMS who advised that he present to the emergency room. He was seen by Dr. Mike on 07/24/17 in the office, noted to have swelling around his right groin. Received an ultrasound, noted to have a hematoma since that time, the swelling has been stable if not decreased, but become more hard around his right groin with an expanding hematoma down his right thigh. The plan per the patient was to return this week on Saturday for further intervention including stents to other arteries noted on previous catheterization. When seen in the emergency room, the patient felt well, had no complaints. Previous medications were undocumented, however, does note that metoprolol is new. 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 PAST SURGICAL HISTORY: Tonsillectomy. MEDICATIONS: 1. Nitroglycerin sublingual 0.4 mg every 5 minutes as needed for pain. 2. Metoprolol tartrate 25 mg twice daily. 3. Vitamin D 1000 units daily. 4. Atorvastatin 80 mg in the evening. 5. Aspirin 81 mg daily. 6. Brilinta 20 mg twice daily. ALLERGIES: None. FAMILY HISTORY: History of prostate cancer. SOCIAL HISTORY: No history of tobacco, currently no alcohol. 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 He was previously very active, could walk 5 miles prior to STEMI without stopping. PHYSICAL EXAMINATION GENERAL: Lying 30 degrees in bed, interactive, pleasant, in no apparent distress. VITAL SIGNS: In the emergency room 118/64, heart rate 60, respiratory rate 17, 100% on room air, T-max 96.9. HEENT: Oropharynx is clear. Dry mucous membranes. Sclerae are anicteric. NECK: He has no non-elevated JVD. HEART: He has regular rate and rhythm. No murmurs, rubs, or gallops. LUNGS: Clear to auscultation. ABDOMEN: Soft, nontender, nondistended. EXTREMITIES: Warm and well perfused without clubbing, cyanosis, or edema. He has hematoma in his right groin that is hard, nontender skin, expanding hematoma down his right thigh, no bruit. NEUROLOGIC: He is alert and oriented x3. His cranial nerves II through XII are intact. PSYCHOLOGIC: There is no apparent anxiety, agitation, or depression. DIAGNOSTIC STUDIES/LAB DATA: Labs reviewed, notable for BNP 67. Potassium 3.8 , bicarb 27, creatinine 0.95. LFTs within normal limits. Troponin I 0.04. White blood cell count 5.5, hemoglobin 14.8, platelets 194. Chest x-ray: No cardiopulmonary disease. Rib x-ray: No right fracture evident, negative for pneumothorax. CT head: No evidence of traumatic brain injury or acute intracranial process. EKG unchanged from discharge includes normal sinus rhythm, T-wave inversions in V5, V6, aVL, and lead 1; otherwise, no ST changes. ASSESSMENT AND PLAN: This is an 82-year-old man presenting with recent posterior wall myocardial infarction on 07/19/17 with drug-eluting stent to second obtuse marginal, occluded large second obtuse marginal branch, presenting to the hospital after episode of syncope and diaphoresis that followed: 1. Syncope. Concerning with the recent ST-segment elevation myocardial infarction. Admit to telemetry, monitor on telemetry. We will notify interventional cardiology team, given the patient had planned intervention 3 days from today. Trend troponins. Continue home medications including metoprolol, aspirin, Brilinta, atorvastatin. In the setting of new beta blockade, bradycardia could have contributed to this presentation; however, we will consider this diagnosis at the conclusion . 2. Impaired fasting glucose. No intervention. 3. Cough. Chest x-ray negative for pneumonia. Check rapid influenza. 4. DVT prophylaxis. Heparin subcu. [id number]/[facility] #: [id number] MTDD
[2017-07-28] MEDS: Oseltamivir CAP* 75 MG CAP PO SCH (21:07)
[2017-07-28] MEDS: Atorvastatin* 80 MG TAB PO SCH (21:07)
[2017-07-28] MEDS: Ticagrelor* 90 MG TAB PO SCH (21:07)
[2017-07-28] MEDS: Metoprolol Tartrate TAB* 25 MG PO SCH (21:07)
[2017-07-29] MEDS: Heparin VIAL(*) 5000 UNITS/ML VIAL (FIVE THOUSAND) SUBCUT SCH ×3 (05:45→21:46)
[2017-07-29] MEDS: Ticagrelor* 90 MG TAB PO SCH ×2 (09:17→21:43)
[2017-07-29] MEDS: Metoprolol Tartrate TAB* 25 MG PO SCH ×2 (09:17→21:43)
[2017-07-29] MEDS: Aspirin EC Low Dose* 81 MG TAB.EC PO SCH (09:17)
[2017-07-29] MEDS: Cholecalciferol TAB* 1000 UNITS PO SCH (09:17)
[2017-07-29] MEDS: Oseltamivir CAP* 75 MG CAP PO SCH ×2 (09:17→21:46)
--- NOTE | 2017-07-29 10:38 | ED ---
Gwen Ennis Edward, scribed for Jose Fry MD on 07/28/17 at 0732 . HPI Chest Pain - HPI Summary HPI Summary: 82 y/o male presents to the ED c/o sudden onset diaphoresis at 05:00 this morning. Sx not aggravated or alleviated b anything. Denies CP, SOB. PMHX HI 9 days ago - stent put in by Dr. Mike. Pt states he had diaphoresis intermittently since the HI but none as severe as this morning. - History of Current Complaint Chief Complaint: EDGeneral Time Seen by Provider: 07/28/17 07:29 Hx Obtained From: Patient Onset/Duration: Started Hours Ago Pain Intensity: 0 Aggravating Factor(s): Nothing Alleviating Factor(s): Nothing Associated Signs and Symptoms: Positive: Diaphoresis - Additional Pertinent History Primary Care Physician: [id number] - Allergy/Home Medications Allergies/Adverse Reactions: Allergies Allergy/AdvReac Type Severity Reaction Status Date / Time No Known Allergies Allergy Verified 07/28/17 07:20 PMH/Surg Hx/FS Hx/Imm Hx Previously Healthy: No Cardiovascular History: Reports: Hx Myocardial Infarction, Other Cardiovascular Problems/Disorders - foramen ovale Denies: Hx Coronary Artery Disease, Hx Hypertension Sensory History: Reports: Hx Cataracts - BILATERAL, Hx Contacts or Glasses - GLASSES Denies: Hx Hearing Aid Opthamlomology History: Reports: Hx Cataracts - BILATERAL, Hx Contacts or Glasses - GLASSES - Surgical History Surgery Procedure, Year, and Place: TONSILLECTOMY A CHILD. RIGHT LARGE TOE SURGERY. ROOT CANAL ABOUT TEN YEARS AGO, OFFICE Hx Anesthesia Reactions: No Infectious Disease History: No Infectious Disease History: Denies: Traveled Outside the [place] in Last 30 Days - Family History Known Family History: Positive: Cardiac Disease - Social History Alcohol Use: Occasionally Hx Substance Use: No Substance Use Type: Reports: None Hx Tobacco Use: No Smoking Status (MU): Never Smoked Tobacco Review of Systems Positive: Skin Diaphoresis Eyes: Negative ENT: Negative Cardiovascular: Negative Respiratory: Negative Gastrointestinal: Negative Genitourinary: Negative Musculoskeletal: Negative Skin: Negative Neurological: Negative Psychological: Normal All Other Systems Reviewed And Are Negative: Yes Physical Exam - Summary Physical Exam Summary: VITAL SIGNS: Reviewed. GENERAL: Patient is a well-developed and nourished male who is lying comfortable in the stretcher. Patient is not in any acute respiratory distress. HEAD AND FACE: No signs of trauma. No ecchymosis, hematomas or skull depressions. No sinus tenderness. EYES: PERRLA, EOMI x 2, No injected conjunctiva, no nystagmus. EARS: Hearing grossly intact. Ear canals and tympanic membranes are within normal limits. MOUTH: Oropharynx within normal limits. NECK: Supple, trachea is midline, no adenopathy, no JVD, no carotid bruit, no c- spine tenderness, neck with full ROM. CHEST: Symmetric, no tenderness at palpation LUNGS: Clear to auscultation bilaterally. No wheezing or crackles. CVS: Regular rate and rhythm, S1 and S2 present, no murmurs or gallops appreciated. ABDOMEN: Soft, non-tender. No signs of distention. No rebound no guarding, and no masses palpated. Bowel sounds are normal. EXTREMITIES: FROM in all major joints, no edema, no cyanosis or clubbing. NEURO: Alert and oriented x 3. No acute neurological deficits. Speech is normal and follows commands. SKIN: Ecchymosis and hematoma @ R groin s/p catheterization. Triage Information Reviewed: Yes Vital Signs On Initial Exam: Initial Vitals Temp Pulse Resp BP Pulse Ox 96.9 F 64 15 132/71 100 07/28/17 07:16 07/28/17 07:16 07/28/17 07:16 07/28/17 07:16 07/28/17 07:16 Vital Signs Reviewed: Yes Diagnostics - Vital Signs Vital Signs Temp Pulse Resp BP Pulse Ox 07/28/17 07:16 96.9 F 64 15 132/71 100 - Laboratory Lab Results: Lab Results 07/28/17 Range/Units 07:37 WBC 5.5 (3.5-10.8) 10^3/ul RBC 4.91 (4.0-5.4) 10^6/ul Hgb 14.8 (14.0-18.0) g/dl Hct 43 (42-52) % MCV 88 (80-94) fL MCH 30 (27-31) pg MCHC 34 (31-36) g/dl RDW 13 (10.5-15) % Plt Count 194 (150-450) 10^3/ul MPV 9 (7.4-10.4) um3 Neut % (Auto) 63.1 (38-83) % Lymph % (Auto) 19.6 L (25-47) % [place] % (Auto) 15.7 H (1-9) % Eos % (Auto) 1.2 (0-6) % Baso % (Auto) 0.4 (0-2) % Absolute Neuts (auto) 3.4 (1.5-7.7) 10^3/ul Absolute Lymphs (auto) 1.1 (1.0-4.8) 10^3/ul Absolute Monos (auto) 0.9 H (0-0.8) 10^3/ul Absolute Eos (auto) 0.1 (0-0.6) 10^3/ul Absolute Basos (auto) 0 (0-0.2) 10^3/ul Absolute Nucleated RBC 0 10^3/ul Nucleated RBC % 0.1 Result Diagrams: 07/28/17 07:37 07/28/17 07:37 Lab Statement: Any lab studies that have been ordered have been reviewed, and results considered in the medical decision making process. - Radiology RIBS XR Xray Interpretation: No Acute Changes - No RIGHT rib fracture evident. Negative for pneumothorax. Radiology Interpretation Completed By: Radiologist - ED PHYSICIAN REVIEWS AND AGREES CXR Xray Interpretation: No Acute Changes - No evidence for acute intrathoracic disease Radiology Interpretation Completed By: Radiologist - CT BRAIN CT CT Interpretation: No Acute Changes - No evidence for traumatic brain injury or acute intracranial process. Negative exam for age. CT Interpretation Completed By: Radiologist - ED PHYSICIAN REVIES AND AGREES - Additional Comments Diagnostic Additional Comments: SR @ 63 BPM. T wave inversion in I, aVL, V4-V6. No ST elevations. Similar to EKG done on 07/21/17 Chest Pain Course/Dx - Course Assessment/Plan: 82 y/o male presents to the ED c/o sudden onset diaphoresis at 05:00 this morning. Sx not aggravated or alleviated b anything. Denies CP, SOB. PMHX HI 9 days ago - stent put in by Dr. Mike. Pt states he had diaphoresis intermittently since the HI but none as severe as this morning. RIBS XR SHOW No RIGHT rib fracture evident. Negative for pneumothorax. BRAIN CT SHOWS No evidence for traumatic brain injury or acute intracranial process. Negative exam for age. CXR shows no evidence for acute intrathorcic disease. Test results without significant abnormalities except Trop 0.04 and influenza b positive. In the ED course the pt was given iv fluids, ASA and Tamiflu for flu. Since the pt had syncopal episode and recent HI I discussed the case with Dr. Portillo who accepted the pt for admission. Pt is hemodynamically stable, A&Ox3. - Chest Pain Differential Diagnosis/HQI/PQRI: Acute HI, ACS, Angina, CHF, Chest Wall, GI Disease - Diagnoses Provider Diagnoses: Syncope, Influenza A, Increased Troponin - Provider Notifications Discussed Care Of Patient With: Troy Portillo Time Discussed With Above Provider: 08:59 Instructed by Provider To: Admit As Inpatient Discharge - Discharge Plan Condition: Stable Disposition: ADMITTED TO [facility] The documentation as recorded by the Gwen lovell Edward accurately reflects the service I personally performed and the decisions made by Ang lazcano Walter, MD.
[2017-07-29] MEDS ORDERED: Perflutren Lipid Microsphere* 3 ML VIAL ONE (14:53)
--- NOTE | 2017-07-29 15:39 | PN ---
Subjective Date of Service: 07/29/17 Interval History: Patient states that he is feeling a little better, denies shortness of breath or chest pain. Denies and pain or N/V/D Family History: Unchanged from Admission Social History: Unchanged from Admission Past Medical History: Unchanged from Admission Objective Active Medications: Acetaminophen (Tylenol Tab*) 650 mg PO Q4H PRN PRN Reason: FEVER/PAIN Last Admin: 07/28/17 22:11 Dose: 650 mg Aspirin (Aspirin Ec Low Dose*) 81 mg PO DAILY [facility] Last Admin: 07/29/17 09:17 Dose: 81 mg Atorvastatin Calcium (Lipitor*) 80 mg PO 2100 [facility] Last Admin: 07/28/17 21:07 Dose: 80 mg Cholecalciferol (Vitamin D Tab*) 1,000 units PO DAILY [facility] Last Admin: 07/29/17 09:17 Dose: 1,000 units Heparin Sodium (Porcine) (Heparin Vial(*)) 5,000 units SUBCUT Q8HR [facility] Last Admin: 07/29/17 13:57 Dose: 5,000 units Sodium Chloride (Ns 0.9% 1000 Ml*) 1,000 mls @ 100 mls/hr IV PER RATE [facility] Metoprolol Tartrate (Lopressor Tab*) 25 mg PO BID [facility] Last Admin: 07/29/17 09:17 Dose: 25 mg Nitroglycerin (Nitroglycerin Tab 0.4 Mg*) 0.4 mg SL Q5M PRN PRN Reason: ANGINA Ondansetron HCl (Zofran Inj*) 4 mg IV Q4H PRN PRN Reason: NAUSEA/VOMITING Oseltamivir Phosphate (Tamiflu Cap*) 75 mg PO BID [facility] Stop: 08/02/17 09:01 Last Admin: 07/29/17 09:17 Dose: 75 mg Polyethylene Glycol/Electrolytes (Miralax*) 17 gm PO DAILY PRN PRN Reason: CONSTIPATION Last Admin: 07/28/17 16:17 Dose: 17 gm Ticagrelor (Brilinta*) 90 mg PO BID [facility] Last Admin: 07/29/17 09:17 Dose: 90 mg Vital Signs - 8 hr 07/29/17 11:12 Pulse Rate 58 O2 Sat by Pulse 98 Oximetry Oxygen Devices in Use Now: None Appearance: appears comfortble sitting in bed Eyes: No Scleral Icterus Ears/Nose/Mouth/Throat: NL Teeth, Lips, Gums, Mucous Membranes Moist Neck: NL Appearance and Movements; NL JVP, Trachea Midline Respiratory: Symmetrical Chest Expansion and Respiratory Effort, Clear to Auscultation Cardiovascular: NL Sounds; No Murmurs; No JVD, No Edema Abdominal: NL Sounds; No Tenderness; No Distention Extremities: No Edema, No Clubbing, Cyanosis Skin: No Rash or Ulcers Neurological: Alert and Oriented x 3, NL Muscle Strength and Tone Nutrition: Taking PO's Result Diagrams: 07/28/17 07:37 07/28/17 07:37 Additional Lab and Data: Lab Results 07/28/17 Range/Units 07:37 WBC 5.5 (3.5-10.8) 10^3/ul RBC 4.91 (4.0-5.4) 10^6/ul Hgb 14.8 (14.0-18.0) g/dl Hct 43 (42-52) % MCV 88 (80-94) fL MCH 30 (27-31) pg MCHC 34 (31-36) g/dl RDW 13 (10.5-15) % Plt Count 194 (150-450) 10^3/ul MPV 9 (7.4-10.4) um3 Neut % (Auto) 63.1 (38-83) % Lymph % (Auto) 19.6 L (25-47) % [place] % (Auto) 15.7 H (1-9) % Eos % (Auto) 1.2 (0-6) % Baso % (Auto) 0.4 (0-2) % Absolute Neuts (auto) 3.4 (1.5-7.7) 10^3/ul Absolute Lymphs (auto) 1.1 (1.0-4.8) 10^3/ul Absolute Monos (auto) 0.9 H (0-0.8) 10^3/ul Absolute Eos (auto) 0.1 (0-0.6) 10^3/ul Absolute Basos (auto) 0 (0-0.2) 10^3/ul Absolute Nucleated RBC 0 10^3/ul Nucleated RBC % 0.1 Microbiology and Other Data: Microbiology 07/28/17 11:55 Influenza Types A,B Antigen (KIRK) - Final Nasal Specimen received for Influenza A/B Molecular testing Assess/Plan/Problems-Billing Assessment: Mr. Echeverria is an 82 y.o male who presented to the the emergency room after a syncopal event. Patient with a recent stent placement and posterior wall MN. Patient did test positive for FLU B. 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
--- NOTE | 2017-07-29 15:57 | CONS ---
CC: Dr. John Paul Siegel * CONSULTATION REPORT: DATE OF CONSULT: 07/29/17 INDICATION FOR THE CONSULT: The patient with recent intervention for a STEMI to posterior wall with residual coronary artery disease and a syncopal episode to assess cardiac status. HISTORY OF PRESENT ILLNESS: The patient is a pleasant 82-year-old gentleman who is known to me from recent hospitalization for a late presentation of a posterior wall ST-elevation myocardial infarction on 07/19/17 with subsequent stenting of the circumflex mid obtuse marginal branch with 2.25 x 28 mm long Synergy drug eluting stent. Of note, he had residual disease in the LAD with borderline significance in the proximal, mid, and distal area, distal being most severe. He had an echocardiogram that showed an EF of 45% with a moderate- to-severe low posterolateral wall hypokinesis. Since that time, after catheterization, he had developed a small hematoma to the right groin area, which by ultrasound did not show any evidence of a pseudoaneurysm. On Saturday, he started feeling cold symptoms coming on with coughing and fatigue. On Saturday night, he was starting to contemplate how to reduce his weight and decided on Saturday to have half of what he normally eats at breakfast and lunch. Around 4 p.m., his asked him to go out and put bird feed in the bird feeder. There were 6 steps of stairs that were covered with snow and as such he decided to drag the snow off using a shovel. He explains that he had his feet on different steps. The next thing he knew he was flat on his back, cannot explain it went inside. He realized that he had probably struck his right ribcage and also the back of his head, although he was wearing a hat at that time. His eventually assessed the area and found that it was not icy or slippery and as such there was some concern over these findings. Still he had no symptoms of chest or arm discomfort or profound shortness of breath, nausea, or vomiting. On Saturday at 5 a.m., he woke up and found to be sweaty. He denied any chest, jaw, or arm discomfort at that time. Because of this, he eventually called 911. They reportedly did an EKG and told him it looked great and that either his could drive him to the hospital or they could drive him, but they recommended he go to hospital to be checked. His drove him to the hospital. Initial troponin was 0.04, but this was much lower than the troponins that he had had from his prior hospitalization about a week ago. His EKG had showed T-wave inversions in the inferior apical regions, which if anything appeared to be slightly less than his last one on 07/21/17. Overnight his cardiac enzymes have stayed in a flat pattern. His EKG now has a little bit more prominent T-wave inversions in the inferior apical leads, more consistent with the way the EKG looked on his last EKG prior to discharge. Once again, he has had no chest, jaw, or arm discomfort. No significant shortness of breath. He has been having some coughing and his white count does show a viral shift and he apparently has turned out to be positive for influenza B. He is on appropriate precautions. He has maintained his Brilinta, aspirin, metoprolol, and atorvastatin. Review of his monitor strips in the hospital have not shown any significant arrhythmias including no significant ventricular arrhythmias, no profound heart block. PAST MEDICAL HISTORY: Includes, as mentioned earlier, the prior myocardial infarction. He does have history of a patent foramen ovale and had been on aspirin for that. 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 In the past, he also had a history of possible TIA after heavy exertion back in 2005 which prompted the diagnosis of the patent foramen ovale. Back then he had Holter monitor with rare PACs. PAST SURGICAL HISTORY: Includes tonsillectomy. CURRENT MEDICATIONS: Include; 1. Nitroglycerin p.r.n.. 2. Metoprolol tartrate 25 mg twice a day. 3. Vitamin D 1000 units a day. 4. Atorvastatin 80 mg a day. 5. Aspirin 81 mg a day. 6. Brilinta 90 mg twice a day. ALLERGIES: No known drug allergies. FAMILY HISTORY: Significant for prostate cancer. SOCIAL HISTORY: He does not smoke. 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 PHYSICAL EXAM: General: When I saw him reveals a pleasant gentleman currently resting, in no acute distress. Vital Signs: Reveal blood pressure is 125/58, pulse is regular in the 60s, respirations 16 to 20, O2 saturation 94% on room air. Neck: Supple. No increased JVP. Carotids with good upstroke and volume without bruits. Conjunctivae are pink. Sclerae are clear. Lungs: Reveal no accessory muscle usage. There is minimal coarse breath sounds bilaterally, but no active rales, rhonchi, or wheezes. Heart: Reveals no visible heaves, no palpable heaves or thrills. Normal S1, S2 with no significant S3, S4 gallop. No significant systolic or diastolic murmur. Abdomen: Soft, nontender without organomegaly. Extremities: Without clubbing, cyanosis, or xiomara pitting edema. The right groin area anglin have firmness in the area from prior hematoma. There is no bruit present on it. Pulse is intact. Distal pulses are intact. Neuro: The patient is alert and oriented with normal mentation. Musculoskeletal: The patient moves all extremities, appropriate. Psychological : The patient with normal affect. DIAGNOSTIC STUDIES/LAB DATA: Laboratory results to date, white count is 5500 with 63% neutrophils, 19.6% lymphocytes, 15.7 monos with increased absolute mono rate. INR is 1.0. Sodium 135, potassium 3.8, chloride 101, bicarb 27, BUN and creatinine 14 and 0.95. SGOT 23, SGPT 24, alkaline phosphatase 65. Total CPK on admission 50, MB 1.6, troponin 0.04. Repeat troponin is 0.05 and 0.4 respectively. B-natriuretic peptide was 67. TSH was 2.96. Serology revealed positive rapid influenza B test, negative rapid influenza A test. Chest x-ray report revealed no evidence of acute intrathoracic disease. Rib reports said no evidence of rib fracture or pneumothorax. A brain CT was read as no evidence for traumatic brain injury or acute intracranial process. Electrocardiogram from 07/28/17 timed 7:26 revealed sinus rhythm heart rate 63, T-wave inversion in I and aVL and V5 and V6 with nonspecific T-wave changes inferiorly, some flattening, there was R greater than S in V1 with counter- clockwise rotation to the R-wave progression. Repeat EKG today revealed T-wave inversion more prominent in II, III, aVF, and V5 and V6. OVERALL ASSESSMENT: Trell presents now with an episode that is unclear the exact etiology of his syncope. He potentially was doing some degree of exertion at the time, which would raise the potential question from a cardiac stand-point to this has been an ischemic induced arrhythmia or even a spontaneous arrhythmia from an infarcted area. Of note, his monitors throughout the hospitalization so far have not demonstrated any significant ventricular arrhythmia. His cardiac enzymes are not consistent with acute coronary syndrome. At this point in time, we will get an echocardiogram to relook at LV function to make sure there has been no significant change. I would contemplate proceeding to the cardiovascular laboratory most likely tomorrow morning to analyze both the status of the stent that was placed as well as to look at the left anterior descending artery and most likely do a fractional flow reserve analysis and consider stent placement as needed from FFR guided intervention. Still the answer to the question of syncope is somewhat difficult. If we were to attribute it to a cardiac etiology, we may need to consider EP evaluation with possibility of transferring him for an EP study to rule out presence of the easily inducible ventricular arrhythmia. I will be discussing this with the dye lab technician in [place] and make further recommendations pending that discussion. Thank you very much for allowing us to see the patient. We will follow him along with you. [id number]/[facility] #: [id number] MERI
--- NOTE | 2017-07-29 16:08 | ECHO ---
Patient: ODALYS YOUSIF [facility] Rec#: [id number] : 1935 Date: 07/29/2017 Age: 82y Height: 180.34 cm / 71.0 in Weight: 80.29 kg / 177.0 lbs Sex: M BSA: 2 Room#: 440 Admit Date#: 07/28/2017 Type: Inpatient Referring: Zaid Mike MD Reading: Zaid Mike MD [employer] Guide: Shana Gillespie RD,RDMS CC: John Paul Siegel MD Transthoracic Echocardiogram Indication: Myocardial Infarction BP: 125/58 HR: 63 Rhythm: NSR Findings History: S/P STEMI, PCI. TIA, PFO Technical Comments: The study is technically limited due to poor acoustic windows. Left Ventricle: The left ventricular chamber size is normal. Mild concentric left ventricular hypertrophy is observed. There is a focal wall motion abnormality present.There is moderate hypokinesis of the mid posterior wall The estimated ejection fraction is 45-50%. Abnormal left ventricular diastolic function is observed. Left Atrium: The left atrial chamber size is normal. Right Ventricle: The right ventricular chamber size and systolic function are within normal limits. Right Atrium: The right atrial cavity size is normal. Aortic Valve: The aortic valve is trileaflet. The aortic valve leaflets are mildly thickened. There is no evidence of aortic regurgitation. There is no evidence of aortic stenosis. Mitral Valve: The mitral valve leaflets appear normal. There is trace to mild mitral regurgitation. There is no evidence of mitral stenosis. Tricuspid Valve: The tricuspid valve leaflets are normal. There is trace tricuspid regurgitation. Unable to estimate the right ventricular systolic pressure. Pulmonic Valve: There is no evidence of pulmonic valve thickening. There is a trace pulmonic regurgitation. Pericardium: There is no significant pericardial effusion. Aorta: The aortic root appears normal. There is mild dilatation of the aortic arch. Pulmonary Artery: The main pulmonary artery is not well visualized. Venous: The inferior vena cava is not visualized. Contrast: Definity was used to optimize study. A total of 4 ml was used Conclusions There is a focal wall motion abnormality present.There is moderate hypokinesis of the mid posterior wall Mild concentric left ventricular hypertrophy is observed. The estimated ejection fraction is 45-50%. No significant valvular disease: There is trace to mild mitral regurgitation. There is trace tricuspid regurgitation. Unable to estimate the right ventricular systolic pressure. There is a trace pulmonic regurgitation. There is mild dilatation of the aortic arch. Compared to report of study from 07/19/2017 the focal wall motion abnormality is again noted perhaps minimally improved (LVEF was 45%). Measurements Name Value Normal Range RVDdMajor (2D) 3 cm (2.2 - 4.4) RAd ISD 4CH 4.5 cm (3.4 - 4.9) RA (A4C)W 3.9 cm (2.9 - 4.6) IVSd (2D) 1.1 cm (0.6 - 1) LVPWd (2D) 1.1 cm (0.6 - 1) LVIDd (2D) 4.1 cm (3.6 - 5.4) LVIDs (2D) 3.5 cm - LV FS (2D) 14 % (25 - 45) Aortic Annulus 2.3 cm (1.4 - 2.6) Ao root diameter (2D) 2.9 cm (2.1 - 3.5) Ascending Ao 2.8 cm (2.1 - 3.4) Aortic arch 3.8 cm (1.8 - 3.4) LA dimension (AP) 2D 3.8 cm (2.3 - 3.8) LAd ISD 4CH 4.6 cm (2.9 - 5.3) Name Value Normal Range LA ESV SP 4CH (A/L) 48.29 ml - LA ESV SP 2CH (A/L) 80.93 ml - LA ESV BP (A/L) 75.25 ml - LA ESV BP (A/L) index 26 ml/m2 - LA ESV SP 4CH (MOD) 43.31 ml - LA ESV SP 2CH (MOD) 78.95 ml - Name Value Normal Range MV E-wave Vmax 0.8 m/sec - MV deceleration time 233 msec - MV A-wave Vmax 0.6 m/sec - MV E:A ratio 1.3 ratio - P. vein S-wave Vmax 0.41 m/sec - P. vein D-wave Vmax 0.3 m/sec - P. vein S:D Vmax ratio 1.5 ratio - P. vein A-wave duration 133 msec - Name Value Normal Range AV Vmax 1.2 m/sec - AV VTI 23.6 cm - AV peak gradient 6 mmHg - AV mean gradient 3.8 mmHg - LVOT Vmax 1 m/sec - LVOT VTI 18 cm - LVOT peak gradient 4 mmHg - LVOT mean gradient 1.7 mmHg - PEDRO Vmax 0.6 m/sec - Name Value Normal Range RAP 8 mmHg - Name Value Normal Range PV Vmax 0.6 m/sec - PV peak gradient 1.4 mmHg -
[2017-07-29] MEDS: Atorvastatin* 80 MG TAB PO SCH (21:43)
[2017-07-30 06:02] LABS: EGFR Non-African American 95.8 (>60)
[2017-07-30 06:15] LABS: ABS Basophils 0 10^3/ul (0-0.2); ABS Eosinophils 0 10^3/ul (0-0.6); ABS Lymphocytes 1.2 10^3/ul (1.0-4.8); ABS Monocytes 0.4 10^3/ul (0-0.8); ABS Neutrophils 2.1 10^3/ul (1.5-7.7); ABS Nucleated RBC 0 10^3/ul; Eosinophil % 1.2 % (0-6); Hematocrit 42 % (42-52); Hemoglobin 14.3 g/dl (14.0-18.0); Lymphocyte % 30.5 % (25-47); Mean Corpuscular HGB Conc 34 g/dl (31-36); Mean Corpuscular Hemoglobin 30 pg (27-31); Mean Corpuscular Volume 88 fL (80-94); Mean Platelet Volume 9 um3 (7.4-10.4); Nucleated Red Blood Cells % 0.1; Platelet Count 193 10^3/ul (150-450); Red Blood Count 4.79 10^6/ul (4.0-5.4); Red Cell Distribution Width 13 % (10.5-15); White Blood Count 3.8 10^3/ul (3.5-10.8)
[2017-07-30] MEDS: Heparin VIAL(*) 5000 UNITS/ML VIAL (FIVE THOUSAND) SUBCUT SCH ×3 (06:56→22:21)
[2017-07-30] MEDS: Ticagrelor* 90 MG TAB PO SCH ×3 (06:56→20:58)
[2017-07-30] MEDS: Aspirin EC Low Dose* 81 MG TAB.EC PO SCH ×2 (06:56→09:27)
[2017-07-30] MEDS ORDERED: fentaNYL* 50 MCG/ML 2 ML VIAL (100 MCG VIAL) ONE (07:03)
[2017-07-30] MEDS ORDERED: nitroGLYCERIN DRIP* 25,000 MCG/250 ML BTL ONE (07:03)
[2017-07-30] MEDS ORDERED: Heparin(*) 1000 UNIT/ML 10 ML VIAL CATH LAB IV ONE (07:03)
[2017-07-30] MEDS ORDERED: Iohexol 350 (CONTRAST) 200 ML MDV IV ONE ×2 (07:04→08:50)
[2017-07-30] MEDS ORDERED: Heparin 2 UNITS/ML IVPREMIX* 3,000 ML IV ONE (07:04)
[2017-07-30] MEDS ORDERED: Lidocaine 1% INJ* 10 MG/ML 30 ML SDV ONE ×2 (07:04→07:40)
[2017-07-30] MEDS ORDERED: VERAPAMIL 2.5 MG/ML 2 ML VIAL ** 5 mg/2 ml ONE (07:05)
[2017-07-30] MEDS ORDERED: Midazolam* 1 MG/ML 10 ML VIAL (10 MG) ONE (07:05)
[2017-07-30] MEDS ORDERED: Adenosine* 3 MG/ML VIAL ONE (09:46)
[2017-07-30] MEDS ORDERED: Nitroglycerin TAB 0.4 MG* 0.4 MG TAB SL PRN (09:51)
[2017-07-30] MEDS ORDERED: NS 0.9% 1000 ML* 1,000 ML IV SCH (10:00)
[2017-07-30] MEDS: Metoprolol Tartrate TAB* 25 MG PO SCH ×2 (16:15→20:58)
[2017-07-30] MEDS: Oseltamivir CAP* 75 MG CAP PO SCH ×2 (16:15→20:57)
[2017-07-30] MEDS: Cholecalciferol TAB* 1000 UNITS PO SCH (16:15)
[2017-07-30] MEDS: NS 0.9% 1000 ML* 1,000 ML IV SCH (16:34)
--- NOTE | 2017-07-30 18:39 | PN ---
Subjective Date of Service: 07/30/17 Interval History: Patient states that he is feeling a little better, denies shortness of breath or chest pain. Denies and pain or N/V/D Family History: Unchanged from Admission Social History: Unchanged from Admission Past Medical History: Unchanged from Admission Objective Active Medications: Acetaminophen (Tylenol Tab*) 650 mg PO Q4H PRN PRN Reason: FEVER/PAIN Last Admin: 07/28/17 22:11 Dose: 650 mg Aspirin (Aspirin Ec Low Dose*) 81 mg PO DAILY [facility] Last Admin: 07/30/17 09:27 Dose: Not Given Atorvastatin Calcium (Lipitor*) 80 mg PO 2100 [facility] Last Admin: 07/29/17 21:43 Dose: 80 mg Cholecalciferol (Vitamin D Tab*) 1,000 units PO DAILY [facility] Last Admin: 07/30/17 16:15 Dose: Not Given Heparin Sodium (Porcine) (Heparin Vial(*)) 5,000 units SUBCUT Q8HR [facility] Last Admin: 07/30/17 16:15 Dose: Not Given Sodium Chloride (Ns 0.9% 1000 Ml*) 1,000 mls @ 100 mls/hr IV PER RATE [facility] Last Admin: 07/30/17 16:34 Dose: 100 mls/hr Sodium Chloride (Ns 0.9% 1000 Ml*) 1,000 mls @ 100 mls/hr IV .per rate [facility] Stop: 07/30/17 23:00 Metoprolol Tartrate (Lopressor Tab*) 25 mg PO BID [facility] Last Admin: 07/30/17 16:15 Dose: Not Given Nitroglycerin (Nitroglycerin Tab 0.4 Mg*) 0.4 mg SL Q5M PRN PRN Reason: ANGINA Nitroglycerin (Nitroglycerin Tab 0.4 Mg*) 0.4 mg SL Q5M PRN PRN Reason: ANGINA Ondansetron HCl (Zofran Inj*) 4 mg IV Q4H PRN PRN Reason: NAUSEA/VOMITING Oseltamivir Phosphate (Tamiflu Cap*) 75 mg PO BID [facility] Stop: 08/02/17 09:01 Last Admin: 07/30/17 16:15 Dose: Not Given Polyethylene Glycol/Electrolytes (Miralax*) 17 gm PO DAILY PRN PRN Reason: CONSTIPATION Last Admin: 07/28/17 16:17 Dose: 17 gm Ticagrelor (Brilinta*) 90 mg PO BID [facility] Last Admin: 07/30/17 09:27 Dose: Not Given Vital Signs - 8 hr 07/30/17 07/30/17 07/30/17 14:15 14:19 14:31 Temperature 98.4 F Pulse Rate 72 Respiratory 24 12 22 Rate Blood Pressure 121/82 121/82 (mmHg) O2 Sat by Pulse 98 Oximetry 07/30/17 07/30/17 07/30/17 15:00 15:01 16:00 Temperature 98.0 F Pulse Rate 65 65 64 Respiratory 20 23 18 Rate Blood Pressure 127/68 125/72 (mmHg) O2 Sat by Pulse 98 97 96 Oximetry 07/30/17 07/30/17 17:00 17:59 Temperature Pulse Rate 67 Respiratory 19 22 Rate Blood Pressure 133/75 (mmHg) O2 Sat by Pulse 97 Oximetry Oxygen Devices in Use Now: None Appearance: appears comfortable resting in bed Eyes: No Scleral Icterus Ears/Nose/Mouth/Throat: Clear Oropharnyx, Mucous Membranes Moist Neck: NL Appearance and Movements; NL JVP, Trachea Midline Respiratory: Symmetrical Chest Expansion and Respiratory Effort, Clear to Auscultation Cardiovascular: NL Sounds; No Murmurs; No JVD, RRR, No Edema Abdominal: NL Sounds; No Tenderness; No Distention Extremities: No Edema, No Clubbing, Cyanosis Skin: - - no ecchymosis or swelling noted to right radial cath site, pulses + Neurological: Alert and Oriented x 3 Nutrition: Taking PO's Result Diagrams: 07/30/17 06:00 07/30/17 05:57 Additional Lab and Data: Lab Results 07/28/17 Range/Units 07:37 WBC 5.5 (3.5-10.8) 10^3/ul RBC 4.91 (4.0-5.4) 10^6/ul Hgb 14.8 (14.0-18.0) g/dl Hct 43 (42-52) % MCV 88 (80-94) fL MCH 30 (27-31) pg MCHC 34 (31-36) g/dl RDW 13 (10.5-15) % Plt Count 194 (150-450) 10^3/ul MPV 9 (7.4-10.4) um3 Neut % (Auto) 63.1 (38-83) % Lymph % (Auto) 19.6 L (25-47) % [place] % (Auto) 15.7 H (1-9) % Eos % (Auto) 1.2 (0-6) % Baso % (Auto) 0.4 (0-2) % Absolute Neuts (auto) 3.4 (1.5-7.7) 10^3/ul Absolute Lymphs (auto) 1.1 (1.0-4.8) 10^3/ul Absolute Monos (auto) 0.9 H (0-0.8) 10^3/ul Absolute Eos (auto) 0.1 (0-0.6) 10^3/ul Absolute Basos (auto) 0 (0-0.2) 10^3/ul Absolute Nucleated RBC 0 10^3/ul Nucleated RBC % 0.1 Microbiology and Other Data: Microbiology 07/28/17 11:55 Influenza Types A,B Antigen (KIRK) - Final Nasal Specimen received for Influenza A/B Molecular testing Assess/Plan/Problems-Billing Assessment: Mr. Echeverria is an 82 y.o male who presented to the the emergency room after a syncopal event. Patient with a recent stent placement and posterior wall NE. Patient did test positive for FLU B. 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
[2017-07-30] MEDS: Atorvastatin* 80 MG TAB PO SCH (20:58)
--- NOTE | 2017-07-31 02:36 | CATH ---
CC: Dr. John Paul Siegel * CARDIAC CATHETERIZATION AND INTERVENTIONAL REPORT: DATE OF PROCEDURE: 07/30/17 INDICATION FOR PROCEDURE: The patient with recent late presentation, posterior wall STEMI with intervention, now for reassessment of severity of left anterior descending artery, multiple sequential lesions. The procedure was coronary arteriography of the left coronary artery, fractional flow reserve analysis of the [id number], mid, and proximal LAD lesion, primary stenting of the mid-to- distal lesion with a 2.25 x 12 mm long Synergy drug-eluting stent, primary stenting of the mid LAD lesion with a 2.75 x 20 mm long Synergy drug-eluting stent. DESCRIPTION OF PROCEDURE: The patient was interviewed and examined on the floor of the hospital where the risks and benefits were explained. He understood them and wish to proceed. He was brought to the cardiovascular laboratory where formal time- out was performed. The radial artery had already been assessed on the floor of the hospital by ultrasound for size and felt to be acceptable as an approach. He was prepped and draped in sterile fashion. The right radial artery area was anesthetized with 1% lidocaine. The right radial artery was cannulated and a 6-Greek Glidesheath was placed. The patient received radial artery cocktail including 3000 units of heparin, 300 mcg of nitroglycerin and 3 mg of verapamil. Left coronary arteriography was performed utilizing a VL3 curve 6-Greek guide catheter. Following this, an additional 3000 units of heparin was given in preparation to perform the FFR procedure and stent placement. ACT was checked and found to be in therapeutic range. The patient had already received his baby aspirin and morning Brilinta dose. A [place] pressure wire X was advanced just outside of the guide catheter and equilibration was performed. The LAD lesions were then analyzed starting distally as well as the mid segment. The decision to intervene into the distal area first was performed utilizing 2.25 x 12 mm long Synergy drug-eluting stent postdilated to high pressure with an NC Emerge balloon. Following this, FFR of the mid and proximal lesions were checked. Because the mid lesion was still found to be significant, this lesion was then stented utilizing a 2.75 x 20 mg Long Synergy drug-eluting stent postdilated to high pressures with a noncompliant Emerge balloon. Following this, the artery was assessed both with the wire in place and wire removed. Hemostasis was obtained with a Vasc Band. The total contrast used was 185 cc of Omnipaque dye. The radiation exposure included 13.8 minutes of fluoro time. The air kerma radiation was 1177 milligray, the DAP radiation was 6276 microgray per sq. m. RESULTS: LEFT CORONARY ARTERIOGRAPHY: The prior stent in the circumflex artery into the obtuse marginal branch was widely patent. The LAD continued to show what appeared to be 55% proximal lesion with a 70% mid lesion and 85% to 90% distal lesion. FRACTIONAL FLOW RESERVE ANALYSIS: A. Distal lesion 0.69, mid lesion (after stenting the distal lesion) 0.71, proximal lesion is 0.92. INTERVENTION INTO LEFT ANTERIOR DESCENDING ARTERY: A. Distal lesion - successful reduction of 85% to 95% lesion with primary stenting utilizing 2.25 x 12 mm long Synergy drug-eluting stent postdilated to high pressures with 0% residual stenosis LAUREN-3 flow, no dissection seen. B. Intervention to mid LAD lesion - primary stenting utilizing a 2.75 x 20 mm long Synergy drug-eluting stent postdilated to high pressures with 0% residual stenosis, LAUREN 3 flow, no dissection seen. Of note, there was [id number] narrowing of the ostium in the diagonal branch forming a 50% narrowing at the ostium (of note the diagonal branch had been protected during stent placement and with post stent placement dilatation utilizing a guidewire). OVERALL ASSESSMENT: Successful intervention into hemodynamically significant mid and distal lesions in the LAD. At this point in time, dual antiplatelet therapy will be maintained as well as aggressive cholesterol-lowering agents and continued aggressive risk factor management. [id number]/[facility] #: [id number] MERI
[2017-07-31] MEDS: Heparin VIAL(*) 5000 UNITS/ML VIAL (FIVE THOUSAND) SUBCUT SCH ×3 (05:22→20:30)
[2017-07-31] MEDS: NS 0.9% 1000 ML* 1,000 ML IV SCH (05:55)
[2017-07-31 05:58] LABS: ABS Basophils 0 10^3/ul (0-0.2); ABS Eosinophils 0.1 10^3/ul (0-0.6); ABS Lymphocytes 1.4 10^3/ul (1.0-4.8); ABS Monocytes 0.5 10^3/ul (0-0.8); ABS Neutrophils 3.6 10^3/ul (1.5-7.7); ABS Nucleated RBC 0 10^3/ul; Hematocrit 42 % (42-52); Hemoglobin 14.2 g/dl (14.0-18.0); Lymphocyte % 24.6 % (25-47); Mean Corpuscular HGB Conc 34 g/dl (31-36); Mean Corpuscular Hemoglobin 30 pg (27-31); Mean Corpuscular Volume 88 fL (80-94); Mean Platelet Volume 9 um3 (7.4-10.4); Nucleated Red Blood Cells % 0; Platelet Count 203 10^3/ul (150-450); Red Blood Count 4.76 10^6/ul (4.0-5.4); Red Cell Distribution Width 13 % (10.5-15); White Blood Count 5.5 10^3/ul (3.5-10.8)
[2017-07-31] MEDS: Metoprolol Tartrate TAB* 25 MG PO SCH ×2 (08:48→20:30)
[2017-07-31] MEDS: Ticagrelor* 90 MG TAB PO SCH ×2 (08:48→20:30)
[2017-07-31] MEDS: Oseltamivir CAP* 75 MG CAP PO SCH ×2 (08:48→20:30)
[2017-07-31] MEDS: Aspirin EC Low Dose* 81 MG TAB.EC PO SCH (08:48)
[2017-07-31] MEDS: Cholecalciferol TAB* 1000 UNITS PO SCH (08:48)
--- NOTE | 2017-07-31 19:53 | PN ---
Subjective Date of Service: 07/31/17 Interval History: Patient states that he is feeling a little better, denies shortness of breath or chest pain. Denies and pain or N/V/D Family History: Unchanged from Admission Social History: Unchanged from Admission Past Medical History: Unchanged from Admission Objective Active Medications: Acetaminophen (Tylenol Tab*) 650 mg PO Q4H PRN PRN Reason: FEVER/PAIN Last Admin: 07/28/17 22:11 Dose: 650 mg Aspirin (Aspirin Ec Low Dose*) 81 mg PO DAILY [facility] Last Admin: 07/31/17 08:48 Dose: 81 mg Atorvastatin Calcium (Lipitor*) 80 mg PO 2100 [facility] Last Admin: 07/30/17 20:58 Dose: 80 mg Cholecalciferol (Vitamin D Tab*) 1,000 units PO DAILY [facility] Last Admin: 07/31/17 08:48 Dose: 1,000 units Heparin Sodium (Porcine) (Heparin Vial(*)) 5,000 units SUBCUT Q8HR [facility] Last Admin: 07/31/17 13:39 Dose: 5,000 units Metoprolol Tartrate (Lopressor Tab*) 25 mg PO BID [facility] Last Admin: 07/31/17 08:48 Dose: 25 mg Nitroglycerin (Nitroglycerin Tab 0.4 Mg*) 0.4 mg SL Q5M PRN PRN Reason: ANGINA Nitroglycerin (Nitroglycerin Tab 0.4 Mg*) 0.4 mg SL Q5M PRN PRN Reason: ANGINA Ondansetron HCl (Zofran Inj*) 4 mg IV Q4H PRN PRN Reason: NAUSEA/VOMITING Oseltamivir Phosphate (Tamiflu Cap*) 75 mg PO BID [facility] Stop: 08/02/17 09:01 Last Admin: 07/31/17 08:48 Dose: 75 mg Polyethylene Glycol/Electrolytes (Miralax*) 17 gm PO DAILY PRN PRN Reason: CONSTIPATION Last Admin: 07/28/17 16:17 Dose: 17 gm Ticagrelor (Brilinta*) 90 mg PO BID [facility] Last Admin: 07/31/17 08:48 Dose: 90 mg Vital Signs - 8 hr 07/31/17 07/31/17 15:15 15:22 Temperature 98.6 F Pulse Rate 64 Respiratory 18 20 Rate Blood Pressure 119/54 (mmHg) O2 Sat by Pulse 98 Oximetry Oxygen Devices in Use Now: None Appearance: appears comfortable, ambulating in the hallways no complaints Eyes: No Scleral Icterus Ears/Nose/Mouth/Throat: Clear Oropharnyx, Mucous Membranes Moist Neck: NL Appearance and Movements; NL JVP, Trachea Midline Respiratory: Symmetrical Chest Expansion and Respiratory Effort, Clear to Auscultation Cardiovascular: NL Sounds; No Murmurs; No JVD, No Edema Abdominal: NL Sounds; No Tenderness; No Distention Extremities: No Edema, No Clubbing, Cyanosis Skin: No Rash or Ulcers Neurological: Alert and Oriented x 3, NL Gait, NL Muscle Strength and Tone Nutrition: Taking PO's Result Diagrams: 07/31/17 05:36 07/31/17 05:36 Additional Lab and Data: Lab Results 07/28/17 Range/Units 07:37 WBC 5.5 (3.5-10.8) 10^3/ul RBC 4.91 (4.0-5.4) 10^6/ul Hgb 14.8 (14.0-18.0) g/dl Hct 43 (42-52) % MCV 88 (80-94) fL MCH 30 (27-31) pg MCHC 34 (31-36) g/dl RDW 13 (10.5-15) % Plt Count 194 (150-450) 10^3/ul MPV 9 (7.4-10.4) um3 Neut % (Auto) 63.1 (38-83) % Lymph % (Auto) 19.6 L (25-47) % [place] % (Auto) 15.7 H (1-9) % Eos % (Auto) 1.2 (0-6) % Baso % (Auto) 0.4 (0-2) % Absolute Neuts (auto) 3.4 (1.5-7.7) 10^3/ul Absolute Lymphs (auto) 1.1 (1.0-4.8) 10^3/ul Absolute Monos (auto) 0.9 H (0-0.8) 10^3/ul Absolute Eos (auto) 0.1 (0-0.6) 10^3/ul Absolute Basos (auto) 0 (0-0.2) 10^3/ul Absolute Nucleated RBC 0 10^3/ul Nucleated RBC % 0.1 Microbiology and Other Data: Microbiology 07/28/17 11:55 Influenza Types A,B Antigen (KIRK) - Final Nasal Specimen received for Influenza A/B Molecular testing Assess/Plan/Problems-Billing Assessment: Mr. Echeverria is an 82 y.o male who presented to the the emergency room after a syncopal event. Patient with a recent stent placement and posterior wall PR. Patient did test positive for FLU B. 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 (3) History of coronary artery disease Current Visit: Yes Status: Acute Code(s): Z86.79 - PERSONAL HISTORY OF OTHER DISEASES OF THE CIRCULATORY SYSTEM SNOMED Code(s): 951109880 Comment: continue lopressor continue brilinta~ recent stent placement 2 more stents placed yesterday (4) DVT prophylaxis Current Visit: Yes Status: Acute Code(s): JXF1544 - SNOMED Code(s): 746154471 Comment: heparin subq (5) Full code status Current Visit: Yes Status: Acute Code(s): Z78.9 - OTHER SPECIFIED HEALTH STATUS SNOMED Code(s): 422476694 Status and Disposition: inpatient can go home tomorrow pending results of life vest
[2017-07-31] MEDS: Atorvastatin* 80 MG TAB PO SCH (20:30)
[2017-08-01] MEDS: Heparin VIAL(*) 5000 UNITS/ML VIAL (FIVE THOUSAND) SUBCUT SCH ×3 (05:11→20:47)
[2017-08-01] MEDS: Cholecalciferol TAB* 1000 UNITS PO SCH (08:32)
[2017-08-01] MEDS: Aspirin EC Low Dose* 81 MG TAB.EC PO SCH (08:32)
[2017-08-01] MEDS: Ticagrelor* 90 MG TAB PO SCH ×2 (08:33→20:47)
[2017-08-01] MEDS: Metoprolol Tartrate TAB* 25 MG PO SCH ×2 (08:33→20:47)
[2017-08-01] MEDS: Oseltamivir CAP* 75 MG CAP PO SCH ×2 (08:33→20:47)
--- NOTE | 2017-08-01 15:07 | PN ---
Subjective Date of Service: 08/01/17 Interval History: Patient seen and examined at bedside. Denies fever, chills, lightheadedness, shortness of breath, chest discomfort, palpitations, N/V/D. Pt has been ambulating in the halls. Tele: Sinus rhythm, rate 60's. Family History: Unchanged from Admission Social History: Unchanged from Admission Past Medical History: Unchanged from Admission Objective Active Medications: Acetaminophen (Tylenol Tab*) 650 mg PO Q4H PRN Reason: FEVER/PAIN Aspirin (Aspirin Ec Low Dose*) 81 mg PO DAILY [facility] Atorvastatin Calcium (Lipitor*) 80 mg PO 2100 [facility] Cholecalciferol (Vitamin D Tab*) 1,000 units PO DAILY [facility] Heparin Sodium (Porcine) (Heparin Vial(*)) 5,000 units SUBCUT Q8HR [facility] Metoprolol Tartrate (Lopressor Tab*) 25 mg PO BID [facility] Nitroglycerin (Nitroglycerin Tab 0.4 Mg*) 0.4 mg SL Q5M PRN Reason: ANGINA Nitroglycerin (Nitroglycerin Tab 0.4 Mg*) 0.4 mg SL Q5M PRN Reason: ANGINA Ondansetron HCl (Zofran Inj*) 4 mg IV Q4H PRN Reason: NAUSEA/VOMITING Oseltamivir Phosphate (Tamiflu Cap*) 75 mg PO BID [facility] Stop: 08/02/17 09:01 Polyethylene Glycol/Electrolytes (Miralax*) 17 gm PO DAILY PRN Reason: CONSTIPATION Ticagrelor (Brilinta*) 90 mg PO BID [facility] Vital Signs - 8 hr 08/01/17 08/01/17 08/01/17 07:10 07:32 11:13 Temperature 97.4 F 97.5 F Pulse Rate 61 65 Respiratory 16 16 16 Rate Blood Pressure 112/63 115/62 (mmHg) O2 Sat by Pulse 98 98 Oximetry Oxygen Devices in Use Now: None Appearance: NAD, laying in bed Ears/Nose/Mouth/Throat: Mucous Membranes Moist Respiratory: Symmetrical Chest Expansion and Respiratory Effort, Clear to Auscultation Cardiovascular: NL Sounds; No Murmurs; No JVD, RRR Abdominal: NL Sounds; No Tenderness; No Distention Extremities: No Edema Skin: No Rash or Ulcers Neurological: Alert and Oriented x 3, NL Muscle Strength and Tone Lines/Tubes/Other Access: Clean, Dry and Intact Peripheral IV - site benign Nutrition: Taking PO's Result Diagrams: 07/31/17 05:36 07/31/17 05:36 Additional Lab and Data: Microbiology and Other Data: Microbiology 07/28/17 11:55 Influenza Types A,B Antigen (KIRK) - Final Nasal Specimen received for Influenza A/B Molecular testing Assess/Plan/Problems-Billing Assessment: Mr. Echeverria is an 82 y.o male who presented to the the emergency room after a syncopal event. Patient with a recent stent placement and posterior wall AR. Patient did test positive for FLU B. - Patient Problems (1) Syncope Code(s): R55 - SYNCOPE AND COLLAPSE SNOMED Code(s): 308226321 Comment: - Cardiology consult and cardiac cath S/P 2 stents to LAD - Will need to be fitted for life vest or event monitor - Unknown etilogy of syncope possible V tach arrhythmia in setting of recent lateral wall AR - Pt able to perform an exercise stress test today without arrhythmias (2) Influenza B Code(s): J10.1 - FLU DUE TO OTH IDENT INFLUENZA VIRUS W OTH RESP MANIFEST SNOMED Code(s): 30704257 Comment: - Continue Tamiflu and suppotive care (3) History of coronary artery disease Code(s): Z86.79 - PERSONAL HISTORY OF OTHER DISEASES OF THE CIRCULATORY SYSTEM SNOMED Code(s): 031619504 Comment: - S/P 3 stents - Denies chest pain - Continue ASA, statin, lopressor and brilinta (4) DVT prophylaxis Code(s): COW8293 - SNOMED Code(s): 213384507 Comment: - heparin subq (5) Full code status Code(s): Z78.9 - OTHER SPECIFIED HEALTH STATUS SNOMED Code(s): 169621407 Status and Disposition: Inpatient. Discharge to home once life vest or event monitor arrive, possibly in the AM.
[2017-08-01] MEDS: Atorvastatin* 80 MG TAB PO SCH (20:46)
[2017-08-02] MEDS: Heparin VIAL(*) 5000 UNITS/ML VIAL (FIVE THOUSAND) SUBCUT SCH (05:11)
[2017-08-02] MEDS: Cholecalciferol TAB* 1000 UNITS PO SCH (08:41)
[2017-08-02] MEDS: Metoprolol Tartrate TAB* 25 MG PO SCH (08:41)
[2017-08-02] MEDS: Oseltamivir CAP* 75 MG CAP PO SCH (08:41)
[2017-08-02] MEDS: Aspirin EC Low Dose* 81 MG TAB.EC PO SCH (08:41)
[2017-08-02] MEDS: Ticagrelor* 90 MG TAB PO SCH (08:41)
[2017-08-02 11:35] VITALS: BP 111/60
--- NOTE | 2017-08-02 12:06 | PN ---
Subjective Date of Service: 08/02/17 Interval History: Patient seen and examined at bedside. Denies fever, chills, shortness of breath , chest discomfort, N/V/D. Pt states that he is feeling well. He has been instructed to go directly to the cardiology office for placement of his event monitor at discharge. Tele: Sinus rhythm, rate 60's. Family History: Unchanged from Admission Social History: Unchanged from Admission Past Medical History: Unchanged from Admission Objective Active Medications: Acetaminophen (Tylenol Tab*) 650 mg PO Q4H PRN Reason: FEVER/PAIN Aspirin (Aspirin Ec Low Dose*) 81 mg PO DAILY [facility] Atorvastatin Calcium (Lipitor*) 80 mg PO 2100 [facility] Cholecalciferol (Vitamin D Tab*) 1,000 units PO DAILY [facility] Heparin Sodium (Porcine) (Heparin Vial(*)) 5,000 units SUBCUT Q8HR [facility] Metoprolol Tartrate (Lopressor Tab*) 25 mg PO BID [facility] Nitroglycerin (Nitroglycerin Tab 0.4 Mg*) 0.4 mg SL Q5M PRN Reason: ANGINA Nitroglycerin (Nitroglycerin Tab 0.4 Mg*) 0.4 mg SL Q5M PRN Reason: ANGINA Ondansetron HCl (Zofran Inj*) 4 mg IV Q4H PRN Reason: NAUSEA/VOMITING Polyethylene Glycol/Electrolytes (Miralax*) 17 gm PO DAILY PRN Reason: CONSTIPATION Ticagrelor (Brilinta*) 90 mg PO BID [facility] Vital Signs - 8 hr 08/02/17 08/02/17 08/02/17 07:30 08:13 11:28 Temperature 97.8 F 98.9 F Pulse Rate 58 62 Respiratory 16 16 20 Rate Blood Pressure 125/59 111/60 (mmHg) O2 Sat by Pulse 96 96 Oximetry Oxygen Devices in Use Now: None Appearance: NAD, sitting up in bed Ears/Nose/Mouth/Throat: Mucous Membranes Moist Respiratory: Symmetrical Chest Expansion and Respiratory Effort, Clear to Auscultation Cardiovascular: NL Sounds; No Murmurs; No JVD, RRR Abdominal: NL Sounds; No Tenderness; No Distention Extremities: No Edema Skin: No Rash or Ulcers Neurological: Alert and Oriented x 3, NL Muscle Strength and Tone Lines/Tubes/Other Access: Clean, Dry and Intact Peripheral IV - site benign Nutrition: Taking PO's Result Diagrams: 07/31/17 05:36 07/31/17 05:36 Additional Lab and Data: Microbiology and Other Data: Microbiology 07/28/17 11:55 Influenza Types A,B Antigen (KIRK) - Final Nasal Specimen received for Influenza A/B Molecular testing Assess/Plan/Problems-Billing Assessment: Mr. Echeverria is an 82 y.o male who presented to the the emergency room after a syncopal event. Patient with a recent stent placement and posterior wall NH. Patient did test positive for FLU B. - Patient Problems (1) Syncope Code(s): R55 - SYNCOPE AND COLLAPSE SNOMED Code(s): 800245602 Comment: - Cardiology consult and cardiac cath S/P 2 stents to LAD - Will have event monitor placed today - Unknown etilogy of syncope possible V tach arrhythmia in setting of recent lateral wall NH - Pt able to perform an exercise stress test today without arrhythmias (2) Influenza B Code(s): J10.1 - FLU DUE TO OTH IDENT INFLUENZA VIRUS W OTH RESP MANIFEST SNOMED Code(s): 00417757 Comment: - Completed course of Tamiflu and suppotive care (3) History of coronary artery disease Code(s): Z86.79 - PERSONAL HISTORY OF OTHER DISEASES OF THE CIRCULATORY SYSTEM SNOMED Code(s): 893313658 Comment: - S/P 3 stents - Denies chest pain - Continue ASA, statin, lopressor and brilinta (4) DVT prophylaxis Code(s): YPG5742 - SNOMED Code(s): 081399883 Comment: (5) Full code status Code(s): Z78.9 - OTHER SPECIFIED HEALTH STATUS SNOMED Code(s): 530143002 Status and Disposition: Inpatient. Stable for discharge to home, will go to cardiology office for event monitor.
--- NOTE | 2017-08-03 19:25 | DS ---
CC: Dr. John Paul Siegel; Dr. Zaid Mike * DISCHARGE SUMMARY: DATE OF ADMISSION: 07/28/17 DATE OF DISCHARGE: 08/02/17 ATTENDING PHYSICIAN: Dr. Cece Rouse * (dictated by Lm Avery NP). PRIMARY CARE PROVIDER: Dr. John Paul Siegel PRIMARY DIAGNOSES: 1. Syncopal episode. 2. Coronary artery disease. 3. Status post coronary artery stenting x2 to the LAD. SECONDARY DIAGNOSES: 1. Recent ST segment elevated myocardial infarction. 2. Patent foramen ovale. CONSULTATIONS WHILE IN THE HOSPITAL: Dr. Zaid Mike with Interventional Cardiology. PROCEDURES WHILE IN THE HOSPITAL: Status post cardiac catheterization on . Intervention into the left anterior descending artery, successful reduction of an 85% to 95% lesion down to 0% residual stenosis and mid LAD lesion with primary stenting with a drug-eluting stent. Of note, there was a mild-to- moderate narrowing of the ostium in the diagonal branch forming a 50% narrowing at the ostium. STUDIES WHILE IN THE HOSPITAL: 1. Chest x-ray on 07/28/17. Radiologist's impression: No evidence for intrathoracic disease. 2. Brain CT on 07/28/17. Radiologist's impression: No evidence for traumatic brain injury or acute intracranial process. Negative exam for age. 3. Right rib x-ray on 07/28/17. Radiologist's impression: No right rib fracture is evident. Negative for pneumothorax. 4. Transthoracic echocardiogram on 07/29/17. Purchasing And Claims Supervisor's conclusion: There is focal wall motion abnormality present. There is mild hypokinesis of the mid posterior wall. Mild concentric left ventricular hypertrophy is observed. Estimated ejection fraction is 45% to 50%. No significant valvular disease. There is a vclxx-ac-[id number] mitral regurgitation, trace tricuspid regurgitation. Unable to estimate the right ventricular systolic pressure. There is trace pulmonic regurgitation. There is mild dilation of the aortic arch. Compared to report of study from 07/19/17, the focal wall motion abnormality is again noted, perhaps minimally improved. DISCHARGE MEDICATIONS: Continued home medications: 1. Aspirin 81 mg oral daily. 2. Vitamin D 1000 units oral daily. 3. Atorvastatin 80 mg oral daily at bedtime. 4. Metoprolol tartrate 25 mg oral twice daily. 5. Nitroglycerin 0.4 mg sublingual every 5 minutes as needed for angina. 6. Brilinta 90 mg oral twice daily. HISTORY OF PRESENT ILLNESS/HOSPITAL COURSE: Mr. Echeverria is an 82-year-old male with past medical history significant for recent ST elevated HI, who underwent a cardiac catheterization with a single drug-eluting stent placement on 07/19/17 for a subtotally occluded large second obtuse marginal branch. The EF during this hospital stay was noted to be 40% to 45% with focal wall motion abnormalities, [id number] hypokinesis in the low posterolateral wall extending to the lateral apical region. Since the patient's hospitalization and discharge, he had denied any chest pain, shortness of breath, or lightheadedness. He reported a rhinorrhea and productive cough without associated sore throat or fevers. The patient had had no sick contacts other than what he suspected occurred during his hospitalization. On the day of the patient's presentation, he woke up, felt well, he wanted to fill his bird feeder , he notes there was snow on the steps, he shoveled half of the stairs which were approximately 5 small steps and suddenly lost consciousness, which he did not remember, woke up on the floor. He again denied any chest pain, shortness of breath, lightheadedness, nausea, or vomiting. He had pain that developed in his right lower chest wall. It was worse with coughing approximately 12 hours after his fall. 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 The patient woke up at approximately 5 a.m., noted diaphoresis on his chest and back, and felt these were symptoms similar to his posterior STEMI, so he called the EMS and he was brought to the emergency room. It is also to note that the patient was seen in followup by Dr. Mike on July 24 at which time he was noted to have some swelling around his right groin. He had an ultrasound showing a hematoma. The swelling has been stable if not decreased from then. In the emergency room, the patient had x-ray showing no acute rib fracture. He had a chest x-ray showing no cardiopulmonary disease. He had a CT showing no evidence of a traumatic brain injury. He had an EKG that was unchanged from his discharge showing a normal sinus rhythm with T wave inversions in V5, 6, aVL , and lead I and no ST changes. Due to his syncopal episode, the hospitalists were asked to evaluate the patient for admission. While in the hospital, the patient was swabbed and found to have influenza B, he was started on Tamiflu and completed a 5-day course of Tamiflu. He also was taken back to the cardiac supervisor cytogenetic laboratory by Dr. Mike on July 30 at which time he received 2 more drug-eluting stents to his LAD. It was felt that the patient would best be served by having a LifeVest. It was felt that his syncopal episode was likely caused by episode of V-tach. During his hospitalization, he did not have any signs of V-tach. The patient had an exercise stress test with Dr. Mike on August 01 showing no signs of V- tach and a normal stress test. The patient's reported that he had possible episodes of apnea. The patient had an overnight pulse ox study showing overall 23 minutes with desaturations less than 89% with the longest time lasting 52 seconds and the lowest SpO2 of 86. The patient's insurance would not authorize a LifeVest, so the plan was for the patient to present to [facility] at discharge to have an event monitor placed. Mr. Echeverria is stable for discharge to home today. Vital signs are as follows: Temperature 98.9, heart rate 62, respiratory rate 20, O2 sat 96% on room air, blood pressure 111/60. DISCHARGE PLAN: Mr. Echeverria will be discharged to home. Activity as tolerated. He should be on a heart-healthy diet. As far as his coronary artery disease, he will be continued on his Brilinta, aspirin, statin, and metoprolol. He will present to the shipping packer's office for an event monitor today. He has a followup appointment with Dr. Mike on August 07 at 2:20 p.m. He also has an appointment with his primary care provider, Dr. John Paul Siegel, on August 14 at 8:[address] Wise, an refrigerator repair technician in [place], who will be calling the patient to set up an appointment, date, and time as he does set up by Dr. Mike. The patient has been asked to return to emergency room for any chest pain, shortness of breath. This is a summarized report of a complex medical history and hospital stay. For further details, please see the entire medical record. TIME SPENT: Time for this discharge was approximately 50 minutes, greater than half the time was spent with the patient and discussing discharge plans and instructions. CONDITION ON DISCHARGE: Stable. LM PIERCE, BRANDY [id number]/[facility] #: [id number] MERI
== END 2017-08-02 13:00 | disposition home or self-care (01) | DRG 246 ==
LOC: ED 07:13 → MEDTELE 11:42 → OBSVTOIN 07-29 09:30 → ICU 07-30 14:25 → MEDTELE 07-31 08:35
PROVIDERS: ADMIT Internal Medicine; ATTEND Internal Medicine Cardiovascular Disease
PROC: B2101ZZ Fluoroscopy of Single Coronary Artery using Low Osmolar Contrast (ICD-10-PCS; 2017-07-30)
PROC: 4A033BC Measurement of Arterial Pressure, Coronary, Percutaneous Approach (ICD-10-PCS; 2017-07-30)
PROC: 027035Z Dilation of Coronary Artery, One Artery with Two Drug-eluting Intraluminal Devices, Percutaneous Approach (ICD-10-PCS; principal; 2017-07-30 07:00)
DX: I47.2 Ventricular tachycardia (principal); I21.29 ST elevation (STEMI) myocardial infarction involving other sites; I08.1 Rheumatic disorders of both mitral and tricuspid valves; Q21.1 Atrial septal defect; R06.81 Apnea, not elsewhere classified; B35.1 Tinea unguium; R55 Syncope and collapse; I25.10 Atherosclerotic heart disease of native coronary artery without angina pectoris; H26.9 Unspecified cataract; I70.0 Atherosclerosis of aorta; S30.1XXA Contusion of abdominal wall, initial encounter; X58.XXXA Exposure to other specified factors, initial encounter; I77.819 Aortic ectasia, unspecified site; J10.1 Influenza due to other identified influenza virus with other respiratory manifestations; Z82.49 Family history of ischemic heart disease and other diseases of the circulatory system; Z72.89 Other problems related to lifestyle; Z86.73 Personal history of transient ischemic attack (TIA), and cerebral infarction without residual deficits; Z80.42 Family history of malignant neoplasm of prostate; Y92.009 Unspecified place in unspecified non-institutional (private) residence as the place of occurrence of the external cause; Z79.82 Long term (current) use of aspirin; Z79.02 Long term (current) use of antithrombotics/antiplatelets
CPT/HCPCS: 36415; 70450; 71045; 76937; 80048; 80053; 81003; 82550; 82553; 83735; 83880; 84443; 84484; 85025; 85610; 85730; 87502; 93005; 93306; 93454; 96374; 99283; A9270-GY; C1725; C1769; C1876; C1887; C8929; C9600-LD; G0378; J0153; J1644; J2250; J3010

== ENCOUNTER 2019-06-11 09:18 | Emergency (ER) | payer MEDICARE, OTHER ==
[2019-06-11 09:27] VITALS: BP 129/71
--- NOTE | 2019-06-11 09:39 | UC ---
Eye Complaint HPI - HPI Summary HPI Summary: 3 day hstory of itchy eyes with some discharge. Right medial lower eyelid noted to be more swollen last night. - History of Current Complaint Chief Complaint: UCEye Stated Complaint: EYE PROBLEM Time Seen by Provider: 06/11/19 09:31 Hx Obtained From: Patient Onset/Duration: Gradual Onset, Lasting Days - 3 Timing: Constant Severity Initially: Mild Severity Currently: Mild Pain Intensity: 0 Location of Injury: Conjunctiva, Eye Lid (lower) Character: Dull Aggravating Factor(s): Nothing Alleviating Factor(s): Nothing Associated Signs And Symptoms: Positive: Drainage (Purulent). Negative: Vision Impairment Bilateral - Allergies/Home Medications Allergies/Adverse Reactions: Allergies Allergy/AdvReac Type Severity Reaction Status Date / Time No Known Allergies Allergy Verified 06/11/19 09:28 PMH/Surg Hx/FS Hx/Imm Hx Previously Healthy: Yes Endocrine History: Dyslipidemia Cardiovascular History: Cardiac Disease - stents placed 2016 - Surgical History Surgical History: Yes Surgery Procedure, Year, and Place: TONSILLECTOMY A CHILD. RIGHT LARGE TOE SURGERY. ROOT CANAL ABOUT TEN YEARS AGO, OFFICE - Family History Known Family History: Positive: Cardiac Disease - Social History Occupation: Retired Lives: With Family Alcohol Use: Occasionally Substance Use Type: None Smoking Status (MU): Never Smoked Tobacco - Immunization History Most Recent Influenza Vaccination: Fall 2016 Most Recent Pneumonia Vaccination: Has recieved it in the past Review of Systems All Other Systems Reviewed And Are Negative: Yes Constitutional: Positive: Negative Skin: Positive: Negative Eyes: Positive: Drainage, Eye Redness ENT: Positive: Negative Respiratory: Positive: Negative Cardiovascular: Positive: Other - hx of CAD. Negative: Chest Pain Gastrointestinal: Positive: Negative Genitourinary: Positive: Negative Motor: Positive: Negative Neurovascular: Positive: Negative Musculoskeletal: Positive: Negative Neurological: Positive: Negative Psychological: Positive: Negative Is Patient Immunocompromised?: No Physical Exam Triage Information Reviewed: Yes Appearance: Well-Appearing, No Pain Distress Vital Signs: Initial Vital Signs Temp 98 F 06/11/19 09:24 Pulse 66 06/11/19 09:24 Resp 15 06/11/19 09:24 BP 129/71 06/11/19 09:24 Pulse Ox 100 06/11/19 09:24 Eyes: Positive: Conjunctiva Inflamed - bilateral injection without photophobia, pupils small and equal, reactive., Other: - right medial lower lid erythematous , inflamed and mildly swollen, consistent with stye. ENT: Positive: Pharynx normal Dental Exam: Normal Neck: Positive: Supple, Nontender, No Lymphadenopathy Respiratory: Positive: Lungs clear, Normal breath sounds Cardiovascular: Positive: RRR, No Murmur Musculoskeletal Exam: Normal Neurological Exam: Normal Neurological: Positive: Alert Psychological Exam: Normal Skin Exam: Normal Eye Complaint Course/Dx - Differential Dx/Diagnosis Differential Diagnosis/HQI/PQRI: Conjunctivitis, Other - style right lower lid Provider Diagnosis: Conjunctivitis, Hordeolum externum right lower eyelid Discharge ED - Sign-Out/Discharge Documenting (check all that apply): Patient Departure All imaging exams completed and their final reports reviewed: No Studies - Discharge Plan Condition: Stable Disposition: HOME Prescriptions: Polymyx/Trimethoprim OPTH* [Polytrim OPHTH*] 2 drop BOTH EYES Q3H #1 btl Patient Education Materials: Conjunctivitis (ED), Stye (ED) Referrals: Shaista Faye MD [Primary Care Provider] - Additional Instructions: Apply eye drops to both eyes every 2-3 hours today, then 4 times daily for a total of 5 days. Compress the right eye using a clean facecloth rinsed i n hot water. Compress for about 5 minutes three times per day until the stye resolves, which usually takes 2 or 3 days. - Billing Disposition and Condition Condition: STABLE Disposition: Home
== END 2019-06-11 10:05 | disposition home or self-care (01) ==
LOC: UCEAST 09:18
DX: H10.9 Unspecified conjunctivitis (principal); H00.012 Hordeolum externum right lower eyelid; I25.10 Atherosclerotic heart disease of native coronary artery without angina pectoris; Z95.5 Presence of coronary angioplasty implant and graft
CPT/HCPCS: 99212; G0463

== ENCOUNTER 2021-01-06 18:54 | Observation (INO) ==
[2021-01-06] MEDS ORDERED: NS 0.9% 1000 ml BAG 1,000 ML IV ONE (20:02)
[2021-01-06] MEDS ORDERED: Iodixanol (CONTRAST) 320 MG/ML 100 ML SDV IV ONE (20:16)
[2021-01-06 20:26] LABS: ABS Eosinophils 0.2 10^3/ul (0-0.6); ABS Lymphocytes 1.3 10^3/ul (1.0-4.8); ABS Monocytes 0.6 10^3/ul (0-0.8); ABS Neutrophils 4.1 10^3/ul (1.5-7.7); Eosinophil % 2.5 %; Hematocrit 44 % (42-52); Hemoglobin 15.1 g/dL (14.0-18.0); Lymphocyte % 21.2 %; Mean Corpuscular HGB Conc 34 g/dL (31-36); Mean Corpuscular Hemoglobin 30 pg (27-31); Mean Corpuscular Volume 89 fL (80-94); Mean Platelet Volume 8.4 fL (7.4-10.4); Platelet Count 182 10^3/uL (150-450); Red Blood Count 4.98 10^6 /uL (4.18-5.48); Red Cell Distribution Width 13 % (10-15); White Blood Count 6.2 10^3/uL (3.5-10.8)
[2021-01-06 20:35] LABS: INR 1.09 (0.86-1.15)
[2021-01-06 20:57] LABS: Albumin 4.3 g/dL (3.2-5.2); Calcium 9.4 mg/dL (8.6-10.3); Potassium 4.1 mmol/L (3.5-5.0); Total Bilirubin 0.8 mg/dL (0.2-1.0)
[2021-01-06 21:03] LABS: EGFR African American 93.9 (>60); EGFR Non-African American 77.6 (>60); Globulin 2.1 g/dL (2-4); HDL Cholesterol 33.3 mg/dL; Total Protein 6.4 g/dL (6.4-8.9)
[2021-01-06] MEDS ORDERED: Enoxaparin 40 MG/0.4 ML SYR SUBCUT SCH (23:00)
[2021-01-07 06:29] LABS: HDL Cholesterol 29.3 mg/dL
[2021-01-07] MEDS ORDERED: Cholecalciferol (VIT D3) 1,000 unit TAB PO SCH (09:00)
[2021-01-07] MEDS ORDERED: Aspirin EC 81 mg TAB.EC (enteric coated) PO SCH (09:00)
[2021-01-07 12:11] VITALS: BP 120/53
== END 2021-01-07 13:00 | disposition home or self-care (01) ==
LOC: MEDTELE 18:54 → ED 18:54 → MEDTELE 01-07 02:14
PROVIDERS: ADMIT Hospitalist; ATTEND Internal Medicine